=== PATIENT | male | born 1965 | race Caucasian/White ===

== ENCOUNTER 2017-11-19 11:32 | Emergency (ER) | payer OTHER, SELFPAY ==
[2017-11-19 11:45] VITALS: BP 122/85; PULSE 89; RESP 18; TEMP 37.1; O2SAT 96; BMI 27.5
--- NOTE | 2017-11-19 11:56 | XR_ITS ---
XR elbow RT min 3V HISTORY: Pain with limited range of motion ITS.REASON: lifting table, heard pop, pain and limited ROM ORDERING PHYSICIAN: Ramiro Thacker PATIENT AGE: 52 years COMPARISON: None FINDINGS: BONY STRUCTURES: No fracture or dislocation. No lytic or blastic change. Normal mineralization. SOFT TISSUES: Unremarkable. No radio opaque foreign bodies. No displaced fat pad. JOINT SPACE: Well-preserved. No significant arthritic changes evident. IMPRESSION: Negative elbow.
--- NOTE | 2017-11-19 11:56 | XR_ITS ---
XR shoulder RT min 2V HISTORY: Pain with limited range of motion ITS.REASON: lifting table 3/2, felt pop, pain limited ROM ORDERING PHYSICIAN: Ramiro Thacker PATIENT AGE: 52 years COMPARISON: None FINDINGS: No fracture or dislocation. No lytic or blastic change. There is normal mineralization. The joint spaces are well-preserved. No significant degenerative/arthritic changes. No erosive changes evident. IMPRESSION: Negative, no acute finding
--- NOTE | 2017-11-19 11:59 | HMH.EDUTC ---
[facility] [place] Clinical Impression: Strain of right upper arm Qualifiers: Encounter type: initial encounter Qualified Code(s): S46.911A - Strain of unspecified muscle, fascia and tendon at shoulder and upper arm level, right arm, initial encounter Right shoulder strain Qualifiers: Encounter type: initial encounter Qualified Code(s): S46.911A - Strain of unspecified muscle, fascia and tendon at shoulder and upper arm level, right arm, initial encounter Disposition: Home, Self-Care Condition on Discharge: Good Instructions: DI for Shoulder Sprain, How To Perform RICE (Rest, Ice, Compress, Elevate), How to Use a Sling Additional Instructions: * Concern for possible bicep tendon injury distally and/or shoulder strain involving your rotator cuff tendons. Follow up important unless within 2-3 days you are back to normal movement without pain or weakness. * Use/move as tolerated but if painful, stop. Do not work beyond pain but range of motion and follow up important to prevent frozen shoulder * Rest * ice 15-20 mins 3-4 times a day * sling for support and waist strap for shoulder immobilization. Be sure not too tight but not too loose either * Elevate as discussed as much as possible to help reduce swelling and therefore, pain *naproxen every 12 hours as needed for pain and inflammation. If you need something more, you can take tylenol every 4 hours as needed as long as your primary care provider has told you it is ok to take both. * No additional anti-inflammatories like motrin, aleve, advil with the above amount of naproxen. You CAN still take Tylenol every 4 hours as needed if you need something more for pain. Prescriptions: Naproxen 500 mg PO BID PRN #14 tab PRN Reason: Moderate Pain Referrals: Jayant Maddox MD [Staff Physician] - (Call Tuesday since you do not have a primary care provider. Report seen in [facility] for shoulder and elbow pain with limited range of motion and weakness. Xrays negative. Was told to follow up. ) Forms: Work/School Release Time of Disposition: 13:45 Medical Decision Making Vital Signs: 11/19/17 11:45 Temperature 98.7 F Temperature Source Temporal Artery Scan Pulse Rate [Left Radial] 89 Respiratory Rate 18 Blood Pressure [Right Arm] 122/85 Blood Pressure Mean [Right Arm] 97 02 Sat by Pulse Oximetry 96 Oxygen Delivery Method Room Air Orders (Tests/Meds): ED MEDICATIONS Discontinued Medications Generic Name Dose Route Start Last Admin Trade Name Maurice PRN Reason Stop Dose Admin Ketorolac Tromethamine 60 mg 11/19/17 11:55 11/19/17 12:05 Toradol 60mg/2ml Vial IM 11/19/17 11:56 60 mg ONCE ONE Administration - Radiology Data #1 Image(s): Shoulder, Elbow Image Reviewed: Yes I have reviewed radiologist's interpretation Preliminary Findings: Normal/NAD - Osman Inquiry Pt receiving controlled substance: No - Reevaluation(s) Time: 12:48 Reevaluation #1: After waiting 10 minutes in ER to have ER MD read xrays, still in with a patient. SUPERVISOR [employer] will have him call once he is available to read xrays. Went in to update pt. Pt initially resting recline back on exam table with bilateral arms down at his sides. The minute I opened the door, he immediately place right FA back across abdomen. Appears to have been sleeping or resting with eyes closed. Reports toradol helping and pain much less . Updated on delay. No needs at this time. 1340: Radiologist read xrays as ER MD still unavailable. Went in to discuss with patient and . Pt found asleep/resting with eyes closed again as above. Both arms to side again with elbow extended. Immediately aroused, pulled right fingers to mouth and bit a nail then placed FA back across abdomen. Tried to reexamine UE but again, reporting pain and reluctance to move. [facility] [place] - General Stated complaint: poss pull muscle in right arm Time Seen by Provider: 11/19/17 11:45 Mode of Arrival: Family Vehicle Source of Information: Patient Limitat
--- NOTE | 2017-11-19 12:15 | ED_ITS ---
[facility] [place]: Strain of right upper arm Qualifiers: Encounter type: initial encounter Qualified Code(s): S46.911A - Strain of unspecified muscle, fascia and tendon at shoulder and upper arm level, right arm , initial encounter Right shoulder strain Qualifiers: Encounter type: initial encounter Qualified Code(s): S46.911A - Strain of unspecified muscle, fascia and tendon at shoulder and upper arm level, right arm , initial encounter Disposition: Home, Self-Care Condition on Discharge: Good Instructions: DI for Shoulder Sprain, How To Perform RICE (Rest, Ice, Compress , Elevate), How to Use a Sling Additional Instructions: * Concern for possible bicep tendon injury distally and/or shoulder strain involving your rotator cuff tendons. Follow up important unless within 2-3 days you are back to normal movement without pain or weakness. * Use/move as tolerated but if painful, stop. Do not work beyond pain but range of motion and follow up important to prevent frozen shoulder * Rest * ice 15-20 mins 3-4 times a day * sling for support and waist strap for shoulder immobilization. Be sure not too tight but not too loose either * Elevate as discussed as much as possible to help reduce swelling and therefore , pain *naproxen every 12 hours as needed for pain and inflammation. If you need something more, you can take tylenol every 4 hours as needed as long as your primary care provider has told you it is ok to take both. * No additional anti-inflammatories like motrin, aleve, advil with the above amount of naproxen. You CAN still take Tylenol every 4 hours as needed if you need something more for pain. Prescriptions: Naproxen 500 mg PO BID PRN #14 tab PRN Reason: Moderate Pain Referrals: Jayant Maddox MD [Staff Physician] - (Call Tuesday since you do not have a primary care provider. Report seen in [facility] for shoulder and elbow pain with limited range of motion and weakness. Xrays negative. Was told to follow up. ) Forms: Work/School Release Time of Disposition: 13:45 Medical Decision Making Vital Signs: 11/19/17 11:45 Temperature 98.7 F Temperature Source Temporal Artery Scan Pulse Rate [Left Radial] 89 Respiratory Rate 18 Blood Pressure [Right Arm] 122/85 Blood Pressure Mean [Right Arm] 97 02 Sat by Pulse Oximetry 96 Oxygen Delivery Method Room Air Orders (Tests/Meds): ED MEDICATIONS Discontinued Medications Generic Name Dose Route Start Last Admin Trade Name Maurice PRN Reason Stop Dose Admin Ketorolac Tromethamine 60 mg 11/19/17 11:55 11/19/17 12:05 Toradol 60mg/2ml Vial IM 11/19/17 11:56 60 mg ONCE ONE Administration - Radiology Data #1 Image(s): Shoulder, Elbow Image Reviewed: Yes I have reviewed radiologist's interpretation Preliminary Findings: Normal/NAD - Osman Inquiry Pt receiving controlled substance: No - Reevaluation(s) Time: 12:48 Reevaluation #1: After waiting 10 minutes in ER to have ER MD read xrays, still in with a patient. [employer] will have him call once he is available to read xrays. Went in to update pt. Pt initially resting recline back on exam table with bilateral arms down at his sides. The minute I opened the door, he immediately place right FA back across abdomen. Appears to have been sleeping or resting with eyes closed. Reports toradol helping and pain much less . Updated on delay. No needs at this time. 1340: Radiologist read xrays as ER MD
[2017-11-19 13:42] VITALS: BP 120/79; PULSE 82; RESP 18; TEMP 37; O2SAT 98
== END 2017-11-19 13:52 | disposition home or self-care (01) ==
PROVIDERS: Emergency Provider Nurse Practitioner Family
DX: S46.911A Strain of unspecified muscle, fascia and tendon at shoulder and upper arm level, right arm, initial encounter (principal); X50.0XXA Overexertion from strenuous movement or load, initial encounter; F17.210 Nicotine dependence, cigarettes, uncomplicated
CPT/HCPCS: 73030; 73080; 96372; 99202

== ENCOUNTER 2020-08-19 16:56 | Emergency (ER) | payer MEDICAID, SELFPAY ==
[2020-08-19 17:25] VITALS: BP 137/93; PULSE 76; RESP 18; TEMP 36.3; O2SAT 96; BMI 28.0
[2020-08-19 17:38] VITALS: BP 137/93; PULSE 76; RESP 18; TEMP 36.3; O2SAT 96
--- NOTE | 2020-08-19 17:38 | HMH.EDUTC ---
[facility] [place]: Exposure to COVID-19 virus Disposition: Home, Self-Care Condition on Discharge: Good Instructions: Preventing the Spread of Coronavirus Discharge Instructions Additional Instructions: *Monitor Temp, Over the counter Motrin or Tylenol as directed/as needed Tylenol every 4 hours and Motrin every 6 hours (as long as your family doctor has told you that you can take it) for fever or pain. and straight to ER if unable to lower temp less than 101.0 after medication given *Warm salt water gargles may help to soothe the throat *Throat Lozenges *Warm fluids like tea with honey may help to soothe the throat *Sleep elevated *Humidifier/Vaporizer Follow up IMMEDIATELY for new or worsening symptoms or no Noticeable improvement over the next 48-72 hours. 911 for difficulty breathing or swallowing You was tested for today for COVID19 your test result should be back in the next 24-48 hours, you may call to the [facility] tomorrow to see if your test results are back however could take up to 48 hours before results are back [phone] [facility] hours are 9am-9pm You was given a handout with instructions for Self Quarantine and Self isolation for while you wait on test results and what to do if they are positive If you are positive the Health Dept will be contacting you also Referrals: PCP,No [Primary Care Provider] - Forms: Work/School Release Time of Disposition: 17:45 Medical Decision Making - Osman Inquiry Pt receiving controlled substance: No Osman was queried for this patient: No Vital Signs: 08/19/20 17:25 Temperature 97.4 F L Temperature Source Oral Pulse Rate [Right Brachial] 76 Respiratory Rate 18 Blood Pressure [Right Arm] 137/93 H Blood Pressure Mean [Right Arm] 107 Blood Pressure Source [Right Arm] Automatic Cuff Blood Pressure Position [Right Arm] Sitting 02 Sat by Pulse Oximetry 96 Oxygen Delivery Method Room Air Orders (Tests/Meds): ORDERS Category Date Time Status Covid-19 Nasal PCR Sendout [facility] 08/19/20 17:32 [place] [facility] [place] General Stated complaint: COVID TESTING Time Seen by Provider: 08/19/20 17:39 Mode of Arrival: Ambulatory Source of Information: Patient Limitations: No Limitations Description of Symptoms (Recalled from Triage Doc. by RN): PATIENT REQUESTING COVID TEST D/T EXPOSURE; DENIES SYMPTOMS HEENT Symptoms (Recalled from RN notes): No Resp Symptoms (Recalled from RN notes): No Skin Symptoms (Recalled from RN notes): No MS Symptoms (Recalled from RN notes): No Functional Status (Recalled from RN notes): WNL - History of Present Illness Provider Complaint: Patient states that he was recently close contact and was exposed to someone that tested positive for COVID State that he is not having any symptoms but wanted to get tested - Related Data Previous Rx's Medication Instructions Recorded Pantoprazole Sodium [Protonix 40mg 40 mg PO HS 30 Days #30 tab 09/28/19 tablet] Allergies Allergy/AdvReac Type Severity Reaction Status Date / Time Penicillins [PENICILLINS] Allergy Intermediate Verified 09/28/19 05:34 - Worker's Comp Is this a Worker's Comp case?: No [facility] History - Hepatitis A Screen Drug use history?: No High risk sexual behaviors?: No History of sexually transmitted infection?: No Currently employed?: No Childcare worker?: No Do you have indoor plumbing?: Yes Do you have electricity?: Yes Attestation statement:: This patient has been screened for Hepatitis A risk factors. I have reviewed the patient's past medical history: Yes Medical History: Denies:: Cancer, Diabetes Mellitus Type 1, Diabetes Mellitus Type 2, Hypertension, MRSA Other Surgeries: Yes: Other Amputation: No Fractures: Yes - Social History Smoking Status: Current every day smoker Tobacco Type: cigarettes # Packs/Day (cigarettes): 1 Alcohol Intake: never Alcohol Intake Frequency:: holidays/special occasions only Occupa
[2020-08-21 09:44] LABS: Covid-19 Nasal PCR Sendout Lex NOT DETECTED
== END 2020-08-19 17:40 | disposition home or self-care (01) ==
PROVIDERS: Emergency Provider Nurse Practitioner
DX: Z20.828 Contact with and (suspected) exposure to other viral communicable diseases (principal); Z88.0 Allergy status to penicillin
CPT/HCPCS: 99201; U0004

== ENCOUNTER 2021-02-07 03:14 | Emergency (ER) | payer OTHER, SELFPAY ==
[2021-02-07 03:15] VITALS: BP 125/88; PULSE 88; RESP 16; TEMP 36.8; O2SAT 97; BMI 29.7
--- NOTE | 2021-02-07 03:22 | HMH.EDMCLR ---
ED Disposition Clinical Impression: Medical clearance for incarceration Disposition: Home, Self-Care Condition on Discharge: Good Referrals: Jelena Segovia APRN [Primary Care Provider] - Time of Disposition: 03:24 - Critical Care Critical Care Time: No Attestation: On 02/07/21, the high probability of a clinically significant, sudden or life threatening deterioration of the following system(s) required my full and direct attention, intervention and personal management. The time I documented below is in addition to time spent performing reported procedures but includes the following listed in this critical care notation. Medical Decision Making - Medical Records Medical records reviewed: Yes: I reviewed the patient's medical records. - Osman Inquiry Pt receiving controlled substance: No Vital Signs: 02/07/21 03:15 Temperature 98.3 F Temperature Source Oral Pulse Rate [Left Radial] 88 Respiratory Rate 16 Blood Pressure [Right Arm] 125/88 Blood Pressure Mean [Right Arm] 100 Blood Pressure Source [Right Arm] Automatic Cuff Blood Pressure Position [Right Arm] Sitting 02 Sat by Pulse Oximetry 97 Oxygen Delivery Method Room Air Medical Decision Narrative: 55-year-old male presents for clearance for snf. He is alert and oriented and not significantly intoxicated clinically. Denies other drug use today vital signs are within normal limits and he is well-appearing. He will be cleared for snf and discharged in the custody of police. Medical Clearance HPI - General Chief complaint: Medical Clearance Stated complaint: Medical Clearance Time Seen by Provider: 02/07/21 03:22 Mode of Arrival: Ambulatory Source of Information: Patient, Law Enforcement Limitations: No Limitations Description of Symptoms (Recalled from ER Triage Doc. by RN): Pt here for medical clearance with PD. Pt has no complaints. A&Ox4. Pt denies drug use. Pt states he has been drinking tonight. - History of Present Illness HPI Narrative: 55-year-old male who presents in law enforcement custody for medical clearance. Patient reportedly has drank alcohol tonight. He is alert and oriented and able to provide history stating that he has no pain or complaints at this time. Denies other drug use and recent illness. Home medications: Home Medications Medication Instructions Recorded Confirmed No Known Home Medications 12/19/20 12/19/20 Allergies/Adverse reactions: Allergies Allergy/AdvReac Type Severity Reaction Status Date / Time Penicillins [PENICILLINS] Allergy Intermediate Verified 12/19/20 12:02 [facility] [place] History - Hepatitis A Screen Drug use history?: No High risk sexual behaviors?: No History of sexually transmitted infection?: No Currently employed?: No Childcare worker?: No Do you have indoor plumbing?: Yes Do you have electricity?: Yes Attestation statement:: This patient has been screened for Hepatitis A risk factors. Medical History: Reports:: Heart Murmur Denies:: Cancer, Diabetes Mellitus Type 1, Diabetes Mellitus Type 2, Hypertension, MRSA Other Surgeries: Yes: Other Amputation: No Fractures: Yes - Social History Smoking Status: Current every day smoker Tobacco Type: cigarettes # Packs/Day (cigarettes): 1 Alcohol Intake: never Alcohol Intake Frequency:: holidays/special occasions only Occupational Status: employed Family Hx:: No significant family history, Non-contributory ROS Obtained: Yes Systems reviewed as appropriate & no additional complaints Physical Exam - General General appearance: alert, in no apparent distress - Head Head exam: atraumatic, normocephalic - Eye Eye exam: Present: PERRL, EOMI - ENT ENT exam: Present: mucous membranes moist - Neck Neck exam: Present: trachea midline - Chest Chest inspection: Present: symmetric chest wall rise - Respiratory Respiratory exam: Absent: respiratory distress - Cardiovascular Cardiovascular exam: Present: regular r
[2021-02-07 03:24] VITALS: BP 125/88; PULSE 88; RESP 16; TEMP 36.8; O2SAT 97
== END 2021-02-07 03:25 | disposition home or self-care (01) ==
PROVIDERS: Emergency Provider Student in an Organized Health Care Education/Training Program; PCP Nurse Practitioner Family
DX: F10.10 Alcohol abuse, uncomplicated (principal); F17.210 Nicotine dependence, cigarettes, uncomplicated
CPT/HCPCS: 99282

== ENCOUNTER 2021-12-24 15:18 | Emergency (ER) | payer SELFPAY ==
[2021-12-24 15:25] VITALS: BP 134/86; PULSE 78; RESP 19; TEMP 36.6; O2SAT 97; BMI 28.1
--- NOTE | 2021-12-24 15:41 | HMH.EDUTC ---
[facility] [place] Clinical Impression: URI (upper respiratory infection) Qualifiers: URI type: unspecified URI Qualified Code(s): J06.9 - Acute upper respiratory infection, unspecified Disposition: Home, Self-Care Condition on Discharge: Good Instructions: DI for Cough -- Adult, Sore Throat, Sinusitis Additional Instructions: *Monitor Temp, Over the counter Motrin or Tylenol as directed/as needed Tylenol every 4 hours and Motrin every 6 hours (as long as your family doctor has told you that you can take it) for fever or pain. and straight to ER if unable to lower temp less than 101.0 after medication given *Warm salt water gargles may help to soothe the throat *Throat Lozenges *Warm fluids like tea with honey may help to soothe the throat *Sleep elevated *Humidifier/Vaporizer Take medication as prescribed Return if needed Follow up IMMEDIATELY for new or worsening symptoms or no Noticeable improvement over the next 48-72 hours. 911 for difficulty breathing or swallowing Prescriptions: Benzonatate [Benzonatate 100mg cap] 100 mg PO Q8HP PRN #15 cap PRN Reason: Cough Transmission Status[id number] methylPREDNISolone [Medrol 4mg tab] 4 mg PO DIRECTED #21 tab Transmission Status: P[facility] to [facility] Azithromycin [Z-Luke 250mg Tab] 250 mg PO DIRECTED #6 tab Transmission Status: Pending to [id number] Referrals: Provider,Referral, MD [Primary Care Provider] - As needed Forms: Work/School Release Time of Disposition: 15:48 Medical Decision Making - Osman Inquiry Pt receiving controlled substance: No Osman was queried for this patient: No Vital Signs: 12/24/21 15:25 Temperature 97.9 F Temperature Source Oral Pulse Rate [Right Brachial] 78 Respiratory Rate 19 Blood Pressure [Right Arm] 134/86 Blood Pressure Mean [Right Arm] 102 Blood Pressure Source [Right Arm] Automatic Cuff Blood Pressure Position [Right Arm] Sitting 02 Sat by Pulse Oximetry 97 Oxygen Delivery Method Room Air - Lab Data Lab results reviewed: Yes: I reviewed the patient's lab results. [facility] [place]PI - General Stated complaint: ear ache headache Time Seen by Provider: 12/24/21 15:41 Mode of Arrival: Ambulatory Source of Information: Patient Limitations: No Limitations Description of Symptoms (Recalled from Triage Doc. by RN): PATIENT C/O FEVER, LEFT EAR PAIN, BODY ACHES, AND PRODUCTIVE COUGH SINCE YESTERDAY HEENT Symptoms (Recalled from RN notes): Yes Resp Symptoms (Recalled from RN notes): Yes Skin Symptoms (Recalled from RN notes): No MS Symptoms (Recalled from RN notes): No Functional Status (Recalled from RN notes): WNL - History of Present Illness Provider Complaint: Patient states he has been having fever, chills, body aches, left ear pain and cough since yesterday with drianage in the back of his throat and at times he is coughing up some mucous State that he is having pressure behind his eyes and in his sinuses States that today he was still feeling bad so he came in to get checked - Related Data Previous Rx's Medication Instructions Recorded Azithromycin [Z-Luke 250mg Tab] 250 mg PO DIRECTED #6 tab 12/24/21 Benzonatate [Benzonatate 100mg 100 mg PO Q8HP PRN #15 cap 12/24/21 cap] methylPREDNISolone [Medrol 4mg 4 mg PO DIRECTED #21 tab 12/24/21 tab] Allergies Allergy/AdvReac Type Severity Reaction Status Date / Time Penicillins [PENICILLINS] Allergy Intermediate Verified 12/19/20 12:02 - Worker's Comp Is this a Worker's Comp case?: No [facility] History - Hepatitis A Screen Drug use history?: No High risk sexual behaviors?: No History of sexually transmitted infection?: No Currently employed?: No Childcare worker?: No Do you have indoor plumbing?: Yes Do you have electricity?: Yes Attestation statement:: This patient has been screened for Hepatitis A risk factors. I have reviewed the patient's past medical history: Yes Med
[2021-12-24 15:45] LABS: UTC Influenza A Antigen Negative (Negative)
[2021-12-24 15:46] LABS: UTC Influenza B Antigen Negative (Negative)
[2021-12-24 15:47] VITALS: BP 134/86; PULSE 78; RESP 19; TEMP 36.6; O2SAT 97
== END 2021-12-24 15:52 | disposition home or self-care (01) ==
PROVIDERS: Emergency Provider Nurse Practitioner
DX: J06.9 Acute upper respiratory infection, unspecified (principal); F17.210 Nicotine dependence, cigarettes, uncomplicated
CPT/HCPCS: 87804; 99212; G0463

== ENCOUNTER 2024-02-01 10:04 | Outpatient (CLI) | payer MEDICAID, SELFPAY ==
[2024-02-01 18:29] LABS: Basophils # 0.1 K/mm3 (0-0.2); Basophils % 0.8 % (0.1-2.0); Eosinophils # 0.2 K/mm3 (0.0-0.4); Eosinophils % 3.3 % (0.1-12.0); Hematocrit 47.1 % (42.0-52.0); Hemoglobin 16.1 g/dL (14.1-18.0); Lymphocytes # 1.6 K/mm3 (0.7-4.5); Mean Corpuscular HGB Conc 34.2 g/dL (31.8-35.4); Mean Corpuscular Hemoglobin 32.7 pg (27.0-31.2); Mean Corpuscular Volume 95.6 fl (80-94); Mean Platelet Volume 10.4 fl (7.4-10.4); Monocytes # 0.5 K/mm3 (0.1-1.0); Monocytes % 6.8 % (1.7-9.3); Neutrophils # 4.2 K/mm3 (1.8-7.8); Neutrophils % 64.2 % (37.0-80.0); Platelet Count 233 K/mm3 (142-424); Red Blood Count 4.93 M/mm3 (4.60-6.20); Red Cell Distribution Width 13.3 % (11.5-17.5); White Blood Count 6.6 K/mm3 (4.8-10.8)
[2024-02-01 20:05] LABS: Alanine Aminotransferase 49 U/L (12-78); Albumin Level 4.2 g/dl (3.5-5.0); Albumin/Globulin Ratio 1.4 (1.1-1.8); Alkaline Phosphatase 87 U/L (38-126); Anion Gap 15.7 mEq/L (5-15); Aspartate Amino Transferase 37 U/L (17-59); Bilirubin,Total 1.2 mg/dl (0.2-1.3); Blood Urea Nitrogen 19 mg/dl (9-20); Calcium 9.6 mg/dl (8.4-10.2); Carbon Dioxide 26 mmol/L (22.0-30.0); Chloride 104 mmol/L (98-107); Estimated Glomerular Filt Rate 87 ml/min (>60); GFR (African American) 106 ML/MIN (>60); Globulin 3.1 g/dL (1.3-3.2); Glucose 100 mg/dl (74-100); Potassium 4.7 mmoL/L (3.5-5.1); Sodium 141 mmol/L (136-145); Total Protein,Serum 7.3 g/dl (6.3-8.2)
[2024-02-01 20:33] LABS: Prostate Specific Ag Screen 0.8 ng/ml (0.0-4.0)
[2024-02-06 23:23] LABS: HBsAg Screen Negative (Negative); HCV Ab Reactive (Non Reactive); Hep A Ab, IGM Negative (Negative); Hep B Core Ab, IgM Negative (Negative)
== END 2024-02-01 23:59 | disposition home or self-care (01) ==
LOC: LAB.DROPOF 02-03 10:05
PROVIDERS: PCP Family Medicine; Visit Provider Family Medicine
DX: K85.90 Acute pancreatitis without necrosis or infection, unspecified (principal); R10.12 Left upper quadrant pain
CPT/HCPCS: 80053; 80074; 85025; G0103

== ENCOUNTER 2024-02-27 16:02 | Outpatient (CLI) | payer OTHER, SELFPAY ==
[2024-02-27 16:27] LABS: INR 0.93 (0.9-1.1); Prothrombin Time 10.1 seconds (10.1-12.5)
[2024-03-01 21:32] LABS: Hepatitis C Genotype 1a (.)
== END 2024-02-27 23:59 | disposition home or self-care (01) ==
LOC: LAB.DROPOF 16:02
PROVIDERS: PCP Nurse Practitioner Family; Visit Provider Nurse Practitioner Family
DX: B19.20 Unspecified viral hepatitis C without hepatic coma (principal)
CPT/HCPCS: 85610; 87902

== ENCOUNTER 2024-03-07 08:52 | Emergency (ER) | payer OTHER, SELFPAY ==
[2024-03-07 08:53] VITALS: BP 131/89; PULSE 84; RESP 18; TEMP 36.6; O2SAT 95; BMI 29.2
--- NOTE | 2024-03-07 09:06 | CT_ITS ---
FINAL REPORT TECHNIQUE: After the administration of intravenous contrast, axial images were obtained through the abdomen and pelvis by computed tomography. The study was performed with techniques to keep radiation dose as low as reasonably achievable, (ALARA). Individual dose reduction techniques using automated exposure control or adjustment of mA and/or kV according to the patient's size were employed. CLINICAL HISTORY: L abdominal pain, blood in stool COMPARISON: None FINDINGS: Abdomen: There is moderate right basilar atelectasis. Subcentimeter hypodense lesion in the liver dome is probably a cyst. The remaining solid abdominal organs are unremarkable. No bowel obstruction is present. There is mild wall thickening of the descending colon compatible with nonspecific colitis. The transverse and right colon are unremarkable. There is no free air. No fluid collection is seen. There is no adenopathy. Pelvis: The appendix is normal. There is wall thickening of the descending colon extending to involve the proximal sigmoid colon. Small bilateral inguinal hernias are noted. The left contains a small portion of bladder. There is no free fluid. No pelvic mass is seen. IMPRESSION: Nonspecific long segment wall thickening of the left colon and sigmoid colon compatible with mild colitis. Reviewed, Interpreted and Dictated by Barak Browne MD Transcribed by Mandy Ash Authenticated and [facility]
[2024-03-07 09:17] LABS: Basophils # 0.1 K/mm3 (0-0.2); Basophils % 0.7 % (0.1-2.0); Eosinophils # 0.3 K/mm3 (0.0-0.4); Eosinophils % 2.7 % (0.1-12.0); Hematocrit 45.4 % (42.0-52.0); Hemoglobin 15.7 g/dL (14.1-18.0); Lymphocytes # 1.8 K/mm3 (0.7-4.5); Mean Corpuscular HGB Conc 34.7 g/dL (31.8-35.4); Mean Corpuscular Hemoglobin 32.7 pg (27.0-31.2); Mean Corpuscular Volume 94.2 fl (80-94); Mean Platelet Volume 9.1 fl (7.4-10.4); Monocytes # 0.6 K/mm3 (0.1-1.0); Monocytes % 5.9 % (1.7-9.3); Neutrophils # 7.3 K/mm3 (1.8-7.8); Neutrophils % 72.6 % (37.0-80.0); Platelet Count 259 K/mm3 (142-424); Red Blood Count 4.82 M/mm3 (4.60-6.20); Red Cell Distribution Width 13.5 % (11.5-17.5); White Blood Count 10.1 K/mm3 (4.8-10.8)
--- NOTE | 2024-03-07 09:18 | ED_ITS ---
Discharge Plan Disposition Patient Disposition: Home, Self-Care Prescriptions Prescriptions: New oxycodone 5 mg tablet 5 mg PO TID PRN (Reason: severe abdominal pain) Qty: 9 0RF ondansetron 4 mg tablet,disintegrating 4 mg PO Q8H PRN (Reason: nausea and vomiting) 4 Days Qty: 12 0RF No Action sildenafil [Viagra] 100 mg tablet 100 mg PO DAILY PRN (Reason: sexual activity) Qty: 10 10RF Rx Instructions: administer 30 minutes to 4 hours before activity polyethylene glycol 3350 [Miralax] 17 gram/dose powder 17 g PO BID Qty: 238 10RF sofosbuvir-velpatasvir [Epclusa] 400-100 mg tablet 1 tab PO DAILY 84 Days Qty: 84 0RF Referrals Follow up/Referrals: Sav Chandra MD [Primary Care Provider] - See instructions Activity Restrictions/Add. Instructions Additional Instructions/Restrictions: At this time it was felt you are safe to be discharged home. If new or worsening symptoms please do not hesitate to return the emergency department. For pain please take Tylenol 1000 mg every 6 hours as needed and for severe pain take your oxycodone as prescribed. Do not take ibuprofen as it can thin the lining of your intestines. Please follow-up with Dr. Chandra later this week to repeat your blood work and have a repeat physical exam. Clinical Impressions Clinical Impression: Colitis, GI bleed Instructions Patient Instructions: DI for Acute Abdominal Pain Discharge ED Provider: Terry Mckenna General Adult HPI General Chief complaint: Abdominal Pain Stated complaint: pain in left side, blood in feces Time Seen by Provider: 03/07/24 09:00 Mode of Arrival: Ambulatory Source of Information: Patient Limitations: No Limitations Description of Symptoms (Recalled from ER Triage Doc. by RN): left sided abdominal pain. Now has blood in stool. history of hemorrhoids History of Present Illness HPI narrative: Patient is a 58-year-old male with past medical history of previous IV drug use, last use 14 months ago, hepatitis C on antiviral therapy who presents emergency department for evaluation of chronic abdominal pain. Patient was incarcerated for approximately 2 years, was recently released. He has had 2 months of left- sided abdominal pain with difficulty stooling. His stools are soft however he has to strain significantly to get stool out. He says he has a past medical history of hemorrhoids. He was being referred for a colonoscopy and unfortunately they are unable to get him in until May. What is most concerning him is that this morning he had a large bowel movement that was mostly bright red blood. No chest pain, no dysuria, no other acute complaints at this time. Related Data Previous Rx's Medication Instructions Recorded polyethylene glycol 3350 17 17 g PO BID #238 grams 02/01/24 gram/dose oral powder (Miralax) sildenafil 100 mg tablet (Viagra) 100 mg PO DAILY PRN sexual 02/01/24 activity #10 tabs sofosbuvir 400 mg-velpatasvir 100 1 tab PO DAILY 12 weeks #84 tabs 02/27/24 mg tablet (Epclusa) ondansetron 4 mg disintegrating 4 mg PO Q8H PRN nausea and 03/07/24 tablet vomiting 4 days #12 tabs oxycodone 5 mg tablet 5 mg PO TID PRN severe abdominal 03/07/24 pain #9 tabs Allergies Allergy/AdvReac Type Severity Reaction Status Date / Time Penicillins [PENICILLINS] Allergy Intermediate Verified 02/27/24 14:02 [facility] Disclaimer: The information contained in this section may have been updated after the patient was seen, as this information can be updated by other users. Medical History (Updated 03/07/24 @ 11:52 by Terry Mckenna MD) Strain of right upper arm Right shoulder strain Skin infection Medical clearance for incarceration URI (upper respiratory infection) Pancreatitis Surgical History History of mandibular surgery History of surgery on left wrist Family History Other Cancer Coronary artery disease Diabetes Hypertension Social History Smoking Status: Current every day smoker tobacco type: e-cigarettes alcohol intake: never current occupational status: unemployed Travel in the last 8 weeks: None ROS Obtained: Yes Systems reviewed as appropriate & no additional complaints except as documented Physical Exam General General appearance: alert and in no apparent distress Head Head exam: atraumatic and normocephalic Eye Eye exam: Present PERRL ENT ENT exam: Present mucous membranes moist Neck Neck exam: Present normal inspection Chest Chest inspection: Present normal inspection and symmetric chest wall rise Respiratory Respiratory exam: Present normal lung sounds bilaterally; Absent respiratory distress Cardiovascular Cardiovascular exam: Present regular rate and normal rhythm Abdominal Exam Abdominal exam: Present soft and tenderness (Left lower quadrant.) exam: Present other (Editor House Organ present, nonthrombosed nonbleeding external hemorrhoid. No anal fissures.) Extremities Exam Extremities exam: Present normal inspection Neurological Exam Neurological exam: Present alert and oriented X3 Psychiatric Psychiatric exam: Present normal affect Skin Skin exam: Present warm and dry Medical Decision Making [place] Inquiry Pt receiving controlled substance: No Vital Signs: 03/07/24 08:53 03/07/24 10:15 03/07/24 11:00 Temperature 98 F Temperature Source Oral Pulse Rate 66 68 Pulse Rate [Right] 84 Respiratory Rate 18 Blood Pressure 115/78 114/77 Blood Pressure [Right Arm] 131/89 Blood Pressure Mean [Right Arm] 103 02 Sat by Pulse Oximetry 95 95 94 L Oxygen Delivery Method Room Air Room Air Room Air 03/07/24 11:30 Temperature Temperature Source Pulse Rate 65 Pulse Rate [Right] Respiratory Rate Blood Pressure 107/73 L Blood Pressure [Right Arm] Blood Pressure Mean [Right Arm] 02 Sat by Pulse Oximetry 94 L Oxygen Delivery Method Room Air Lab Data Lab Results 03/07/24 09:05: WBC 10.1, RBC 4.82, Hgb 15.7, Hct 45.4, MCV 94.2 H, MCH 32.7 H, MCHC 34.7, RDW 13.5, Plt Count 259, MPV 9.1, Neut % (Auto) 72.6, Lymph % (Auto) 18.0, [place] % (Auto) 5.9, Eos % (Auto) 2.7, Baso % (Auto) 0.7, Neut # (Auto) 7.3, Lymph # (Auto) 1.8, [place] # (Auto) 0.6, Eos # (Auto) 0.3, Baso # (Auto) 0.1, PT 9.6 L, INR 0.88 L, Sodium 137, Potassium 5.3 H, Chloride 107, Carbon Dioxide 24, Anion Gap 11.3, BUN 24 H, Creatinine 0.90, Estimated Creat Clear 141, Estimated GFR 87, Est GFR ( Amer) 106, Glucose 114 H, Calcium 9.1, Total Bilirubin 1.7 H, AST 46, ALT 47, Alkaline Phosphatase 65, Total Protein 7.5, Albumin 4.2, Globulin 3.3 H, Albumin/Globulin Ratio 1.3, Lipase 162 03/07/24 10:30: Urine Color Yellow, Urine Appearance Clear, Urine pH 5.5, Ur Specific [place] 1.020, Urine Protein Negative, Urine Glucose (UA) Negative, Urine Ketones Negative, Urine Blood Negative, Urine Nitrate Negative, Urine Bilirubin Negative, Urine Urobilinogen 1.0, Ur Leukocyte Esterase Negative 03/07/24 09:05 03/07/24 09:05 Orders (Tests/Meds): ED MEDICATIONS Discontinued Medications Generic Name Dose Route Start Last Admin Trade Name Freq PRN Reason Stop Dose Admin Acetaminophen 1,000 mg 03/07/24 09:06 03/07/24 09:21 Acetaminophen 1,000mg/100ml Vial IV 03/07/24 09:07 1,000 mg ONCE ONE Administration Lactated Ringer's 1,000 mls @ 999 mls/hr 03/07/24 09:06 03/07/24 09:21 Lactated Ringer's 1000 Ml Bag IV 03/07/24 10:06 999 mls/hr .Q1H1M ONE Administration Iopamidol 75 ml 03/07/24 09:48 03/07/24 09:49 Iopamidol-370 (76%);100ml Bottle IV 03/07/24 09:49 75 ml ONCE ONE Administration Morphine Sulfate 4 mg 03/07/24 09:06 03/07/24 09:21 Morphine 4mg/Ml Syringe IV 03/07/24 09:07 4 mg ONCE ONE Administration Ondansetron HCl 4 mg 03/07/24 09:06 03/07/24 09:21 Ondansetron 4mg/2ml Vial IV 03/07/24 09:07 4 mg ONCE ONE Administration Sodium Chloride 10 ml 03/07/24 09:48 03/07/24 09:48 Sodium Chloride 0.9% 10ml Syr (Rad Only) IV 03/07/24 09:49 10 ml ONCE ONE Administration ORDERS Category Date Time Status CT abdomen pelvis w con Stat Cat Scan 03/07/24 09:06 Completed CBC w/Auto Diff [Complete Blood Count Auto Diff] Stat Lab 03/07/24 09:05 Completed CMP [Comprehensive Metabolic Panel] Stat Lab 03/07/24 09:05 Completed Lipase Stat Lab 03/07/24 09:05 Completed PT INR [Prothrombin Time INR] Stat Lab 03/07/24 09:05 Completed UA [Urinalysis and Microscopic] Stat Lab 03/07/24 10:30 Results Medical Decision Narrative: In summary patient is a 58-year-old male with past medical history described above who presents emergency department for abdominal pain and bloody stool. Patient is hemodynamically stable nontoxic-appearing upon arrival, afebrile. Differential diagnosis includes mass, diverticulosis, diverticulitis, among others. Internal hemorrhoid should not be painful therefore that makes this diagnosis less likely. Initial workup will be conducted with hematologic labs, CT abdomen pelvis IV contrast, urinalysis. Initial inventions include Tylenol, morphine, Zofran, crystalloid bolus. Initial workup reviewed by me, hematologic labs are nonactionable, hemoglobin 15.7, mild hyperkalemia which does not need any intervention at this time. Urinalysis interpreted by me and not consistent with infection. CT imaging of abdomen pelvis shows nonspecific long segment wall thickening of the left colon and sigmoid colon compatible with colitis. This is where patient's pain is and makes sense. The colitis is of undetermined etiology. Multiple hours in the emergency department patient remained hemodynamically stable, no tachycardia, no ongoing large bloody bowel movements. I discussed the case with Dr. Monsalve, if patient warranted admission for pain control standpoint that would be 1 thing however it is likely to be of low yield for emergent colonoscopy without appropriate prep and given that patient is hemodynamically stable and labs are reassuring patient is appropriate for outpatient management at this time he will be referred to surgery's office for continued evaluation and was given multiple return precautions and verbalized understanding. Critical Care Critical Care Time Critical Care Time: No
[2024-03-07] MEDS: LACTATED RINGERS 1000ML 1,000 ML 999 ML IV (09:21)
[2024-03-07] MEDS: ONDANSETRON 4MG/2ML VIAL 4 MG IV (09:21)
[2024-03-07] MEDS: ACETAMINOPHEN 1,000MG/100ML VIAL 1000 MG IV (09:21)
[2024-03-07] MEDS: MORPHINE 4MG/ML SYRINGE 4 MG IV (09:21)
[2024-03-07 09:24] LABS: Chloride 107 mmol/L (98-107); Potassium 5.3 mmoL/L (3.5-5.1); Sodium 137 mmol/L (136-145)
[2024-03-07 09:27] LABS: Alanine Aminotransferase 47 U/L (12-78); Albumin Level 4.2 g/dl (3.5-5.0); Albumin/Globulin Ratio 1.3 (1.1-1.8); Alkaline Phosphatase 65 U/L (38-126); Anion Gap 11.3 mEq/L (5-15); Aspartate Amino Transferase 46 U/L (17-59); Bilirubin,Total 1.7 mg/dl (0.2-1.3); Blood Urea Nitrogen 24 mg/dl (9-20); Calcium 9.1 mg/dl (8.4-10.2); Carbon Dioxide 24 mmol/L (22.0-30.0); Creatinine Clearance Estimated 141 mL/min (50-200); Estimated Glomerular Filt Rate 87 ml/min (>60); GFR (African American) 106 ML/MIN (>60); Globulin 3.3 g/dL (1.3-3.2); Glucose 114 mg/dl (74-100); Lipase 162 U/L (23-300); Total Protein,Serum 7.5 g/dl (6.3-8.2)
[2024-03-07 09:35] LABS: INR 0.88 (0.9-1.1); Prothrombin Time 9.6 seconds (10.1-12.5)
--- NOTE | 2024-03-07 09:37 | PC.NURSE ---
Chaperoned MD for a rectal exam
--- NOTE | 2024-03-07 09:39 | PC.NURSE ---
PT in CT
[2024-03-07] MEDS: SODIUM CHLORIDE 0.9% 10ML SYR (RAD ONLY) 10 ML IV (09:48)
[2024-03-07] MEDS: IOPAMIDOL-370 (76%);100ML BOTTLE 75 ML IV (09:49)
[2024-03-07 10:15] VITALS: BP 115/78; PULSE 66; O2SAT 95
[2024-03-07 10:39] LABS: Microscopic, Urine URINE MICROSCOPIC (MICROSCOPIC)
[2024-03-07 10:55] LABS: Appearance,Urine CLEAR (Clear); Bilirubin,Urine Negative (Negative); Blood, Urine Negative (Negative); Color,Urine YELLOW (Yellow); Glucose,Urine (UA) Negative (Negative); Ketones,Urine Negative (Negative); Leukocyte Esterase,Urine Negative (Negative); Nitrate,Urine Negative (Negative); PH,Urine 5.5 (5.0-8.5); Protein,Urine Negative (Negative)
[2024-03-07 11:00] VITALS: BP 114/77; PULSE 68; O2SAT 94
[2024-03-07 11:30] VITALS: BP 107/73; PULSE 65; O2SAT 94
--- NOTE | 2024-03-07 12:00 | PC.NURSE ---
CAlled BJ in surgery to make an appt, message left for a call back
[2024-03-07 12:04] LABS: Bacteria,Urine Trace /lpf; Mucus,Urine 1+ /lpf; RBC,Urine Occasional #/hpf (0-3); WBC,Urine Occasional #/hpf (0-3)
[2024-03-07 12:05] LABS: Squamous Epithelial Cell,Urine Occasional #/hpf (0-5)
[2024-03-07 12:13] VITALS: BP 117/79; PULSE 64; RESP 18; TEMP 36.6; O2SAT 94
--- NOTE | 2024-03-07 13:08 | PC.NURSE ---
attempted to call pt about appt for Tuesday with at 0320
--- NOTE | 2024-03-07 13:15 | PC.NURSE ---
Pt aware of appt with
== END 2024-03-07 12:11 | disposition home or self-care (01) ==
PROVIDERS: Emergency Provider Emergency Medicine; PCP Family Medicine
DX: K92.2 Gastrointestinal hemorrhage, unspecified (principal); R10.32 Left lower quadrant pain; E87.5 Hyperkalemia; F17.290 Nicotine dependence, other tobacco product, uncomplicated
CPT/HCPCS: 74177; 80053; 81001; 83690; 85025; 85610; 96361; 96374; 96375; 99285; J0131; J2270; J2405; J7120; Q9967

== ENCOUNTER 2024-03-14 14:01 | Outpatient (CLI) | payer OTHER, SELFPAY ==
[2024-03-14 14:21] LABS: Basophils # 0.1 K/mm3 (0-0.2); Basophils % 0.9 % (0.1-2.0); Eosinophils # 0.2 K/mm3 (0.0-0.4); Eosinophils % 3.2 % (0.1-12.0); Hematocrit 44.8 % (42.0-52.0); Hemoglobin 15.6 g/dL (14.1-18.0); Lymphocytes # 1.9 K/mm3 (0.7-4.5); Lymphocytes % 26.2 % (10-50); Mean Corpuscular HGB Conc 34.9 g/dL (31.8-35.4); Mean Corpuscular Hemoglobin 32.6 pg (27.0-31.2); Mean Corpuscular Volume 93.5 fl (80-94); Mean Platelet Volume 9.1 fl (7.4-10.4); Monocytes # 0.4 K/mm3 (0.1-1.0); Monocytes % 5.1 % (1.7-9.3); Neutrophils # 4.8 K/mm3 (1.8-7.8); Neutrophils % 64.6 % (37.0-80.0); Platelet Count 263 K/mm3 (142-424); Red Cell Distribution Width 13.2 % (11.5-17.5); White Blood Count 7.4 K/mm3 (4.8-10.8)
[2024-03-14 14:46] LABS: Chloride 108 mmol/L (98-107)
[2024-03-14 14:47] LABS: Sodium 139 mmol/L (136-145)
[2024-03-14 14:50] LABS: Alanine Aminotransferase 23 U/L (12-78); Albumin Level 4.3 g/dl (3.5-5.0); Albumin/Globulin Ratio 1.4 (1.1-1.8); Alkaline Phosphatase 73 U/L (38-126); Aspartate Amino Transferase 22 U/L (17-59); Bilirubin,Total 1.2 mg/dl (0.2-1.3); Blood Urea Nitrogen 22 mg/dl (9-20); Calcium 9.5 mg/dl (8.4-10.2); Carbon Dioxide 24 mmol/L (22.0-30.0); Estimated Glomerular Filt Rate 69 ml/min (>60); GFR (African American) 84 ML/MIN (>60); Glucose 91 mg/dl (74-100); Total Protein,Serum 7.3 g/dl (6.3-8.2)
== END 2024-03-14 23:59 | disposition home or self-care (01) ==
LOC: LAB 14:02
PROVIDERS: PCP Family Medicine; Visit Provider Surgery
DX: K52.9 Noninfective gastroenteritis and colitis, unspecified (principal); R19.4 Change in bowel habit
CPT/HCPCS: 36415; 80053; 85025

== ENCOUNTER 2025-01-04 10:23 | Emergency (ER) | payer OTHER, SELFPAY ==
[2025-01-04 10:36] VITALS: BP 115/79; PULSE 88; RESP 18; TEMP 36.8; O2SAT 97; BMI 28.7
--- NOTE | 2025-01-04 11:02 | CT_ITS ---
FINAL REPORT TECHNIQUE: After the administration of oral and intravenous contrast, axial images were obtained through the abdomen and pelvis by computed tomography. The study was performed with techniques to keep radiation dose as low as reasonably achievable, (ALARA). Individual dose reduction techniques using automated exposure control or adjustment of mA and/or kV according to the patient's size were employed. CLINICAL HISTORY: severe R sided abd pain, neg US COMPARISON: 03/07/2024 FINDINGS: Abdomen: There is a 5 mm right upper lobe nodule, stable when compared to the prior exam, best seen on image #15 of series 3. There is also a left lower lobe nodule, best seen on image #19 of series 3, 4 mm in size, also stable. The liver parenchyma demonstrates a low-attenuation focus in the anterior right lobe of the liver measuring 9 mm in size, stable. The gallbladder is contracted. The spleen, pancreas, adrenals and kidneys appear unremarkable. The aorta is normal in caliber. There is no free fluid or adenopathy. Pelvis: The appendix is not identified. The urinary bladder is unremarkable. There is no free fluid or adenopathy. There is a small left inguinal hernia, and a small portion of the bladder extends into the hernia, best seen on image #119 of series 3. IMPRESSION: 2 small 5 mm or less in size pulmonary nodules as described above. Stable since the prior CT of 03/07/2024. There is a low-attenuation focus in the anterior right lobe of the liver, 9 mm in size, stable. Small left inguinal hernia, with a portion of the bladder extending into the hernia, best seen on image #119 of series 3. Reviewed, Interpreted and Dictated by Ayaz Torres MD Transcribed by Ary Pickens Authenticated and [facility]
[2025-01-04 11:05] LABS: Basophils % 0.5 % (0.1-2.0); Eosinophils # 0.2 Kmm3 (0.0-0.4); Eosinophils % 2.4 % (0.1-12.0); Hematocrit 41.5 % (42.0-52.0); Hemoglobin 14.6 g/dL (14.1-18.0); Lymphocytes # 1.8 K/mm3 (0.7-4.5); Lymphocytes % 22.8 % (10-50); Mean Corpuscular HGB Conc 35.2 g/dL (31.8-35.4); Mean Corpuscular Hemoglobin 31.5 pg (27.0-31.2); Mean Corpuscular Volume 89.6 fl (80-94); Mean Platelet Volume 10.7 fl (7.4-10.4); Monocytes # 0.6 K/mm3 (0.1-1.0); Monocytes % 7.4 % (1.7-9.3); Neutrophils # 5.3 K/mm3 (1.8-7.8); Neutrophils % 66.5 % (37.0-80.0); Nucleated Red Blood Cells # 0 10^3/uL; Nucleated Red Blood Cells % 0 %; Platelet Count 238 K/mm3 (142-424); Red Blood Count 4.63 M/mm3 (4.60-6.20); Red Cell Distribution Width 12.2 % (11.5-17.5); Red Cell Distribution Width-SD 40.2 fL; White Blood Count 7.9 K/mm3 (4.8-10.8)
[2025-01-04 11:07] LABS: Albumin Level 4.1 g/dl (3.5-5.0); Chloride 107 mmol/L (98-107); Potassium 4.4 mmoL/L (3.5-5.1); Sodium 141 mmol/L (136-145)
[2025-01-04 11:10] LABS: Alanine Aminotransferase 21 U/L (12-78); Albumin/Globulin Ratio 1.3 (1.1-1.8); Alkaline Phosphatase 72 U/L (38-126); Anion Gap 12.4 mEq/L (5-15); Aspartate Amino Transferase 23 U/L (17-59); Bilirubin,Total 1.3 mg/dl (0.2-1.3); Blood Urea Nitrogen 18 mg/dl (9-20); Calcium 9.1 mg/dl (8.4-10.2); Carbon Dioxide 26 mmol/L (22.0-30.0); Creatinine Clearance Estimated 134 mL/min (50-200); Estimated Glomerular Filt Rate 87 ml/min (>60); GFR (African American) 105 ML/MIN (>60); Globulin 3.1 g/dL (1.3-3.2); Glucose 117 mg/dl (74-100); Total Protein,Serum 7.2 g/dl (6.3-8.2)
--- NOTE | 2025-01-04 11:13 | HMH.EDGENADL ---
Discharge Plan Disposition Patient Disposition: Home, Self-Care Chief Complaint: Abdominal Pain Prescriptions Prescriptions: No Action sildenafil [Viagra] 100 mg tablet 100 mg PO DAILY PRN (Reason: sexual activity) Qty: 10 10RF Rx Instructions: administer 30 minutes to 4 hours before activity polyethylene glycol 3350 [Miralax] 17 gram/dose powder 17 g PO BID Qty: 238 10RF sofosbuvir-velpatasvir [Epclusa] 400-100 mg tablet 1 tab PO DAILY 84 Days Qty: 84 0RF Clenpiq 10 mg-3.5 gram- 12 gram/175 mL solution 175 ml PO DAILY Qty: 350 0RF Rx Instructions: take first dose at 5-9PM evening before colonoscopy; 2nd dose the next day approximately 5 hrs before colonoscopy oxycodone 5 mg tablet 5 mg PO TID PRN (Reason: severe abdominal pain) Qty: 9 0RF ondansetron 4 mg tablet,disintegrating 4 mg PO Q8H PRN (Reason: nausea and vomiting) 4 Days Qty: 12 0RF Referrals Follow up/Referrals: Sav Chandra MD [Primary Care Provider] - See instructions Activity Restrictions/Add. Instructions Additional Instructions/Restrictions: Call your family doctor to establish care for this visit to the emergency department and schedule follow-up within 48 hours to ensure improvement. If you have any worsening of your condition or any other concerning signs or symptoms, return to the emergency department or your primary care doctor for further evaluation. Take Tylenol 1000 mg every 6 hours (4 times daily) and ibuprofen 400 mg every 6 hours (4 times daily) as needed with food and water to prevent GI upset and kidney damage. Clinical Impressions Clinical Impression: Abdominal pain Instructions Patient Instructions: DI for Acute Abdominal Pain Print Language Print Language: Hungarian Discharge ED Provider: Tony Garza General Adult HPI General Chief complaint: Abdominal Pain Stated complaint: R. Side abd pain Time Seen by Provider: 01/04/25 10:31 Mode of Arrival: Ambulatory Source of Information: Patient Description of Symptoms (Recalled from ER Triage Doc. by RN): Patient reports that around 4 pm yesterday he began to have right sided pain. Also states that he was constipated but had a bowel movement and then began to have diarrhea. History of Present Illness HPI narrative: Please note that above description of symptoms, in this electronic medical record under categorization of recalled from ER triage doctor by RN are reflective of an initial nursing assessment, however, is not reflective of my full history and physical exam that was personally taken and clarified. Consequentially, this preceding description of symptoms, which may include the patient's categorized chief complaint in the EMR, do not reflect my personal clinical impression, and the ultimate description of history of present illness and patient stated complaints should be deferred to this section of the note. Unless stated otherwise or congruent with this section of the note, additional signs, symptoms, or incongruence should be interpreted as inaccurate with my clinical impression. Related Data Previous Rx's ?Medication ?Instructions ?Recorded polyethylene glycol 3350 17 17 g PO BID #238 grams 02/01/24 gram/dose oral powder (Miralax) sildenafil 100 mg tablet (Viagra) 100 mg PO DAILY PRN sexual 02/01/24 activity #10 tabs sofosbuvir 400 mg-velpatasvir 100 1 tab PO DAILY 12 weeks #84 tabs 02/27/24 mg tablet (Epclusa) ondansetron 4 mg disintegrating 4 mg PO Q8H PRN nausea and 03/07/24 tablet vomiting 4 days #12 tabs oxycodone 5 mg tablet 5 mg PO TID PRN severe abdominal 03/07/24 pain #9 tabs sod picosulf 10 mg-magnes 3.5 175 ml PO DAILY 2 doses #350 mL 03/14/24 gram-citric 12 gram/175 mL oral solution (Clenpiq) Allergies Allergy/AdvReac Type Severity Reaction Status Date / Time Penicillins (PENICILLINS) Allergy Intermediate Verified 03/14/24 13:33 [facility] Disclaimer: The information contained in this section may have been updated after the patient was seen, as this information can be updated by other users. Medical History Strain of right upper arm Right shoulder strain Skin infection Medical clearance for incarceration URI (upper respiratory infection) Pancreatitis Surgical History History of mandibular surgery History of surgery on left wrist Family History Other Cancer Coronary artery disease Diabetes Hypertension Social History Smoking Status: Current every day smoker tobacco type: e-cigarettes alcohol intake: never current occupational status: unemployed Travel in the last 8 weeks: None Have you lived/traveled outside US in past 30 days?: No Contact w/someone who lives/traveled outside US past 30 days?: No Exposure to someone with infectious disease in past 14 days?: No Do you have a fever (greater than 100.4 F or 38 C)?: No Have you tested positive for COVID-19: No Exposed to someone with COVID-19 in past 14 days?: No Do you have a sore throat?: No Do you have a cough?: No Do you have any weakness?: No Do you have any diarrhea?: No Are you experiencing any unusual bleeding?: No Do you have any muscle aches/pain?: No Do you have any abdominal pain?: Yes Are you experiencing loss of taste or smell?: No Other Medical History Have you received the Flu Vaccine for this season: No Have you received the Pneumonia Vaccine: No ROS Obtained: Yes All systems reviewed & no additional complaints except as documented Physical Exam General General appearance: alert and in no apparent distress Head Head exam: atraumatic and normocephalic Eye Eye exam: Present normal appearance, PERRL and EOMI Neck Neck exam: Present normal inspection, full ROM and trachea midline Respiratory Respiratory exam: Absent respiratory distress, wheezes, stridor, accessory muscle use or prolonged expiratory phase Cardiovascular Cardiovascular exam: Present other (Pulses equal symmetric in upper and lower extremities) Abdominal Exam Abdominal exam: Present soft; Absent distention, tenderness, guarding, rebound, rigidity or pulsatile mass Extremities Exam Extremities exam: Absent edema Back Exam Back exam: Absent CVA tenderness (R) or CVA tenderness (L) Neurological Exam Neurological exam: Present alert, oriented X3 and CN II-XII intact; Absent motor sensory deficit Skin Skin exam: Present warm and dry; Absent diaphoresis or erythema Medical Decision Making Medical Records Medical records reviewed: Yes I reviewed the patient's medical records. Screening: Per USPSTF and CDC recommendations, given the prevalence of disease in our region, it is our hospital?s policy to screen for HIV and viral Hepatitis for all patients aged 18 and over and those with ongoing risk factors. Osman Inquiry Pt receiving controlled substance: No Osman was queried for this patient: No Vital Signs: 01/04/25 10:36 Temperature 98.2 F Temperature Source Oral Pulse Rate [Radial] 88 Respiratory Rate 18 Blood Pressure [Right Arm] 115/79 Blood Pressure Mean [Right Arm] 91 Blood Pressure Source [Right Arm] Automatic Cuff Blood Pressure Position [Right Arm] Sitting 02 Sat by Pulse Oximetry 97 Oxygen Delivery Method Room Air Lab Data Lab Results 01/04/25 10:45: WBC 7.9, RBC 4.63, Hgb 14.6, Hct 41.5 L, MCV 89.6, MCH 31.5 H, MCHC 35.2, RDW 12.2, Plt Count 238, MPV 10.7 H, Neut % (Auto) 66.5, Lymph % (Auto) 22.8, Robeson % (Auto) 7.4, Eos % (Auto) 2.4, Baso % (Auto) 0.5, Neut # (Auto) 5.3, Lymph # (Auto) 1.8, Robeson # (Auto) 0.6, Eos # (Auto) 0.2, Baso # (Auto) 0.0, PT 10.0 L, INR 0.88 L, APTT 24.8, Sodium 141, Potassium 4.4, Chloride 107, Carbon Dioxide 26, Anion Gap 12.4, BUN 18, Creatinine 0.90, Estimated Creat Clear 134, Estimated GFR 87, Est GFR ( Amer) 105, Glucose 117 H, Calcium 9.1, Total Bilirubin 1.3, AST 23, ALT 21, Alkaline Phosphatase 72, Total Protein 7.2, Albumin 4.1, Globulin 3.1, Albumin/Globulin Ratio 1.3, Lipase 409 H, HIV Ag/Ab Combo Qual Negative 01/04/25 12:03: Urine Color Yellow, Urine Appearance Clear, Urine pH 5.5, Ur Specific Sobieski 1.015, Urine Protein Negative, Urine Glucose (UA) Negative, Urine Ketones Negative, Urine Blood Negative, Urine Nitrate Negative, Urine Bilirubin Negative, Urine Urobilinogen 0.2, Ur Leukocyte Esterase Negative, Urine RBC None, Urine WBC None, Ur Squamous Epith Cells Occasional, Urine Bacteria Trace 01/04/25 10:45 01/04/25 10:45 Orders (Tests/Meds): ED MEDICATIONS Discontinued Medications Generic Name Dose Route Start Last Admin Trade Name Freq PRN Reason Stop Dose Admin Iopamidol 75 ml 01/04/25 11:22 01/04/25 11:23 Iopamidol-370 (76%);100ml Bottle IV 01/04/25 11:23 75 ml ONCE ONE Administration Ketorolac Tromethamine 15 mg 01/04/25 11:02 01/04/25 11:15 Ketorolac 30mg/Ml Vial IV 01/04/25 11:03 15 mg ONCE ONE Administration Sodium Chloride 10 ml 01/04/25 11:22 01/04/25 11:23 Sodium Chloride 0.9% 10ml Syr (Rad Only) IV 01/04/25 11:23 10 ml ONCE ONE Administration ORDERS Category Date Time Status CT abdomen pelvis w con Stat Cat Scan 01/04/25 11:02 Taken POCUS Point of Care (ER Only) Stat Exams 01/04/25 10:42 Taken Complete Blood Count Auto Diff Stat Lab 01/04/25 10:45 Completed Comprehensive Metabolic Panel Stat Lab 01/04/25 10:45 Completed HIV Combo Stat Lab 01/04/25 10:45 Completed Lipase Stat Lab 01/04/25 10:45 Completed PT INR [Prothrombin Time INR] Stat Lab 01/04/25 10:45 Completed PTT [Activated Partial Thrombo Time] Stat Lab 01/04/25 10:45 Completed UA [Urinalysis and Microscopic] Stat Lab 01/04/25 12:03 Completed Medical Decision Narrative: 59-year-old male history of hepatitis C recently finished treatment in November 2024, hypertension, hyperlipidemia presenting with abdominal pain. He states that abdominal pain started yesterday, 01/03 when he was doing nothing in particular, unloading groceries, but states he was not lifting any heavy bags or anything. Was acute in onset, right side of his abdomen, did not radiate. Initially mild in intensity, made worse just with activity throughout the day got up to a 9 out of 10, laid down to go to sleep, states that when he lays down on his back it completely goes away. Because it recurred when he got up out of bed this morning, came in for further evaluation. States that while he is laying back and not moving, pain is 0 out of 10 has not taken anything for it. No urinary symptoms, vomiting, diarrhea (1 episode of loose stool, but not multiple) no overlying skin changes. No history of abdominal surgeries. History was obtained via conversation with patient. On arrival, patient hemodynamically stable, alert, oriented x4, appropriate, GCS 15, moving all extremities spontaneously, pupils equal and reactive to light. Full physical exam performed and significant for well-appearing male no acute distress. Abdomen is actually soft, nontender, nondistended with no evidence of tenderness on my exam. Not made worse with deep palpation. No overlying skin changes. No evidence of hernia, no evidence of flank pain and unremarkable exam overall. Differential includes PUD, gastritis, enteritis, gastroenteritis, pancreatitis, SBO, colitis, diverticulitis, nephrolithiasis, UTI, cholecystitis, choledocholithiasis, appendicitis, torsion, hepatitis, aortic pathology, mesenteric ischemia among others. Patient placed on continuous cardiac monitoring and continuous pulse ox with initial blood pressure 115/79, heart rate 88, saturation 97 on room air. Patient was given Toradol for symptomatic management and correction of underlying abnormalities. Bedside [id number]-ry-[id number] ultrasound performed of the right upper quadrant, no evidence of right upper quadrant abnormality, gallbladder normal. No evidence of hydronephrosis on the right. Workup independently interpreted and significant for nonactionable hematologic labs. Coags normal, LFTs normal as well. Lipase only mildly elevated, not meeting criteria for acute pancreatitis. Urinalysis normal as well. On independent interpretation of imaging, no acute intra-abdominal pathology to explain patient's pain. See radiology read for full review of final results. Reevaluation, patient still resting comfortably. Given patient presentation, workup, history, this most likely represents acute idiopathic abdominal pain. Because patient at baseline without signs or symptoms of clinical decompensation, deemed appropriate for discharge. Results were relayed to patient who voiced understanding and were agreeable to outpatient management and follow up. I discussed my clinical impression with patient and answered all questions. At this time, the evidence for any other entities in the differential is insufficient to warrant any further testing or ED observation. This was explained as well. Advisory was given that persistent or worsening symptoms require further evaluation. I confirmed the understanding of this discussion. Social Services Analyst disclaimer Much of this encounter note is an electronic cam maker spoken language to printed text. Electronic cam maker of the spoken language may permit errors. Although I have reviewed the note, some errors may still exist. Procedures Limited Ultrasound Indication:: Limited RUQ ultrasound Indication: Abdominal pain Identified structures: -Gallbladder -Gallbladder wall -Common bile duct -Liver Findings: Sonographic Paige sign: Absent Gallstones: Absent Sludge: Absent Pericholecystic fluid: Absent Maximal GB wall thickness (mm) (normal is </= 3mm): Normal Common bile duct width (mm) (normal is </= 6mm): Normal Gallbladder width (cm) (normal is < 4cm): Normal Gallbladder length (cm) (normal is < 10cm): Normal Impression: Normal right upper quadrant ultrasound Images were saved to permanent archive The study was technically adequate CPT 58804-50 This study was performed by me, and I personally interpreted all images/videos. Based on my clinical judgement, these images were adequate and did not necessitate further imaging. Critical Care Critical Care Time Critical Care Time: No
[2025-01-04] MEDS: KETOROLAC 30MG/ML VIAL 15 MG IV (11:15)
--- NOTE | 2025-01-04 11:19 | PC.NURSE ---
pt to ct scan via wheelchair
[2025-01-04] MEDS: SODIUM CHLORIDE 0.9% 10ML SYR (RAD ONLY) 10 ML IV (11:23)
[2025-01-04] MEDS: IOPAMIDOL-370 (76%);100ML BOTTLE 75 ML IV (11:23)
[2025-01-04 11:25] LABS: Activated Partial Thrombo Time 24.8 seconds (22.8-30.6); INR 0.88 (0.9-1.1)
[2025-01-04 11:34] LABS: Lipase 409 U/L (23-300)
--- NOTE | 2025-01-04 11:35 | PC.NURSE ---
pt back from ct scan
[2025-01-04 12:08] LABS: Microscopic, Urine URINE MICROSCOPIC (MICROSCOPIC)
[2025-01-04 12:09] LABS: Appearance,Urine CLEAR (Clear); Bilirubin,Urine Negative (Negative); Blood, Urine Negative (Negative); Color,Urine YELLOW (Yellow); Glucose,Urine (UA) Negative (Negative); Ketones,Urine Negative (Negative); Leukocyte Esterase,Urine Negative (Negative); Nitrate,Urine Negative (Negative); PH,Urine 5.5 (5.0-8.5); Protein,Urine Negative (Negative); Specific Gravity, Urine 1.015 (1.005-1.030); Urobilinogen,Urine 0.2 EU/dl (0.2)
[2025-01-04 12:16] LABS: HIV Combo NEGATIVE (Negative)
--- NOTE | 2025-01-04 12:25 | PC.NURSE ---
Called radiology to check on status of mr reads. There are prelim reads and these were given to Dr Garza.
[2025-01-04 12:27] LABS: Bacteria,Urine Trace /lpf; Squamous Epithelial Cell,Urine Occasional #/hpf (0-5)
[2025-01-04 13:00] VITALS: BP 120/70; PULSE 80; RESP 17; TEMP 36.7; O2SAT 98
== END 2025-01-04 13:05 | disposition home or self-care (01) ==
PROVIDERS: Emergency Provider Emergency Medicine; PCP Family Medicine
DX: R10.11 Right upper quadrant pain (principal); Z11.4 Encounter for screening for human immunodeficiency virus [HIV]
CPT/HCPCS: 74177; 80053; 81001; 83690; 85025; 85610; 85730; 87389; 96374; 99285; J1885; Q9967

== ENCOUNTER 2025-01-07 13:00 | Outpatient (CLI) | payer OTHER, SELFPAY ==
[2025-01-07 20:15] LABS: Albumin Level 4.3 g/dl (3.5-5.0); Chloride 109 mmol/L (98-107); Sodium 141 mmol/L (136-145)
[2025-01-07 20:16] LABS: Potassium 4.5 mmoL/L (3.5-5.1)
[2025-01-07 20:18] LABS: Alanine Aminotransferase 19 U/L (12-78); Anion Gap 14.5 mEq/L (5-15); Aspartate Amino Transferase 20 U/L (17-59); Blood Urea Nitrogen 20 mg/dl (9-20); Carbon Dioxide 22 mmol/L (22.0-30.0); Estimated Glomerular Filt Rate 77 ml/min (>60); GFR (African American) 93 ML/MIN (>60)
[2025-01-07 20:19] LABS: Albumin/Globulin Ratio 1.3 (1.1-1.8); Alkaline Phosphatase 90 U/L (38-126); Bilirubin,Total 1.1 mg/dl (0.2-1.3); Calcium 9.4 mg/dl (8.4-10.2); Globulin 3.2 g/dL (1.3-3.2); Glucose 108 mg/dl (74-100); Total Protein,Serum 7.5 g/dl (6.3-8.2)
[2025-01-07 21:04] LABS: Hepatitis C Ab Qual. W/ RFX REACTIVE (Negative)
[2025-01-10 10:54] LABS: HIV Combo NEGATIVE (Negative)
== END 2025-01-07 23:59 | disposition home or self-care (01) ==
LOC: LAB.DROPOF 01-08 13:02
PROVIDERS: PCP Family Medicine; Visit Provider Family Medicine
DX: R19.4 Change in bowel habit (principal); B19.20 Unspecified viral hepatitis C without hepatic coma; R10.9 Unspecified abdominal pain
CPT/HCPCS: 80053; 86803; 87389; 87522

== ENCOUNTER 2025-01-28 13:37 | Outpatient (CLI) | payer OTHER, SELFPAY ==
--- NOTE | 2025-01-28 14:23 | XR_ITS ---
FINAL REPORT CLINICAL HISTORY: erosive oa, lower back pain COMPARISON: none FINDINGS: 3 views of the lumbar spine were obtained. There is no evidence of fracture. Minimal spondylolisthesis of L4 on L5. The vertebrae are normal in height. Advanced disc space narrowing of L5-S1. Prominent facet sclerosis is noted in the lower lumbar spine. No paraspinous soft tissue abnormalities identified. IMPRESSION: Degenerative changes without acute bony abnormality. Reviewed, Interpreted and Dictated by Ayaz Torres MD Transcribed by Mandy Ash Authenticated and [facility]
--- NOTE | 2025-01-28 14:23 | XR_ITS ---
FINAL REPORT TECHNIQUE: 2 views right knee CLINICAL HISTORY: erosive oa, knee pain COMPARISON: None FINDINGS: RIGHT KNEE: 2 images of the right knee were obtained. There is no evidence of fracture or dislocation. The joint spaces are intact. There is no soft tissue abnormality identified. IMPRESSION: No acute bony abnormality. Reviewed, Interpreted and Dictated by Ayaz Torres MD Transcribed by Ary Pickens Authenticated and [facility]
--- NOTE | 2025-01-28 14:23 | XR_ITS ---
FINAL REPORT TECHNIQUE: Left knee 2 views CLINICAL HISTORY: erosive oa, lt knee pain COMPARISON: None FINDINGS: LEFT KNEE: Two images of the left knee were obtained. There is no evidence of fracture or dislocation. The joint spaces are intact. There is no soft tissue abnormality identified. IMPRESSION: No acute bony abnormality. Reviewed, Interpreted and Dictated by Ayaz Torres MD Transcribed by Ary Pickens Authenticated and [facility]
--- NOTE | 2025-01-28 14:23 | XR_ITS ---
FINAL REPORT TECHNIQUE: 3 views CLINICAL HISTORY: erosive oa, neck pain COMPARISON: None FINDINGS: AP and lateral views of the cervical spine were obtained. There is no prior exam for comparison. There is no acute fracture or malalignment. Vertebral body height is preserved. There is moderate disc space narrowing of the C5-6 and C6-7 discs. There is mild reversal of the cervical lordosis. Vascular calcifications are noted in the right and left paraspinal soft tissues on the AP view, consistent with carotid artery calcification. IMPRESSION: Degenerative changes C5-6 and C6-7, with no acute process. Carotid artery calcifications are present bilaterally. Reviewed, Interpreted and Dictated by Ayaz Torres MD Transcribed by Ary Pickens Authenticated and . [facility]
== END 2025-01-28 23:59 | disposition home or self-care (01) ==
LOC: RAD 13:38
PROVIDERS: PCP Family Medicine; Visit Provider Family Medicine
DX: M43.16 Spondylolisthesis, lumbar region (principal); M47.812 Spondylosis without myelopathy or radiculopathy, cervical region; M17.0 Bilateral primary osteoarthritis of knee
CPT/HCPCS: 72040; 72100; 73560

== ENCOUNTER 2025-03-20 09:40 | Outpatient (CLI) | payer OTHER, SELFPAY ==
[2025-03-20 21:31] LABS: Hematocrit 41.7 % (42.0-52.0); Hemoglobin 14.2 g/dL (14.1-18.0); Immature Granulocytes % 0.2 %; Mean Corpuscular HGB Conc 34.1 g/dL (31.8-35.4); Mean Corpuscular Hemoglobin 30.5 pg (27.0-31.2); Mean Corpuscular Volume 89.7 fl (80-94); Nucleated Red Blood Cells % 0 %; Platelet Count 234 K/mm3 (142-424); Red Blood Count 4.65 M/mm3 (4.60-6.20); Red Cell Distribution Width-SD 39.2 fL; White Blood Count 8.9 K/mm3 (4.8-10.8)
[2025-03-20 22:05] LABS: Alanine Aminotransferase 17 U/L (12-78); Albumin Level 4.4 g/dl (3.5-5.0); Albumin/Globulin Ratio 1.6 (1.1-1.8); Alkaline Phosphatase 76 U/L (38-126); Anion Gap 12.6 mEq/L (5-15); Aspartate Amino Transferase 21 U/L (17-59); Bilirubin,Total 1.1 mg/dl (0.2-1.3); Blood Urea Nitrogen 16 mg/dl (9-20); Calcium 9.3 mg/dl (8.4-10.2); Carbon Dioxide 29 mmol/L (22.0-30.0); Chloride 102 mmol/L (98-107); Creatinine,Serum 1.00 mg/dl (0.66-1.25); Estimated Glomerular Filt Rate 77 ml/min (>60); GFR (African American) 93 ML/MIN (>60); Globulin 2.8 g/dL (1.3-3.2); Glucose 92 mg/dl (74-100); Lipase 162 U/L (23-300); Potassium 4.6 mmoL/L (3.5-5.1); Sodium 139 mmol/L (136-145); Total Protein,Serum 7.2 g/dl (6.3-8.2)
[2025-03-22 08:17] LABS: Testosterone,Total 278 ng/dL (264-916)
--- OUTSIDE RECORDS SUMMARY | 2025-03-25 09:54 | XMS_ITS | Clinical Summary ---
Author Organization Healthcare Address [address] [place] [address] Care Team Providers Care Corporate Compliance Officer Name Role Phone Pcp, No Primary Care Provider Unavailabl e Allergies Active Allergy Reactions Criticality Noted Date Comments Penicillins Rash Low 03/19/2024 Medications FAMOTIDINE PO Take 1 tablet by mouth 1 (one) time each day if needed (heartburn). Active atorvastatin (Lipitor) 80 MG tablet Take 1 tablet (80 mg) by mouth every night. 30 tablet 3 4 Active fluticasone (Flonase) 50 MCG/ACT nasal spray Administer 1 spray into each nostril 1 (one) time each day. Shake gently. Before first use, prime pump. After use, clean tip and replace cap. 16 g 4 Active Active Problems Problem Noted Date Diagnosed Date Small vessel disease, cerebrovascular 04/05/2024 Resolved Problems Problem Noted Date Diagnosed Date Resolved Date Stroke-like symptoms 04/04/2024 024 Left-sided weakness 04/03/2024 04/05/20 24 Encounters Date Type Department Care Team Description 01/17/2025 Patient Outreach [facility] [address] [place] [address] Renetta Upton from Last 3 Months Social History Tobacco Use Types Packs/Day Years Used Date Smoking Tobacco: Every Day Smokeless Tobacco: Never Tobacco Cessation:Ready to Q uit: Not Asked; Counseling Given: Not Answered Comments:Vape Alcohol Use Standard Drinks/Week Comments Not Currently 0 (1 standard drink = 0.6 oz pur e alcohol) Humiliation, Afraid, Rape, and Kick questionnair e Answer Date Recorded Within the last year, have y ou been afraid of your partner or ex-partner? No 04/04/2024 Within the last year, have y ou been humiliated or emotionally abused in other ways by your partner or ex-partner? No Within the last year, have y ou been kicked, hit, slapped, or otherwise physically hurt by your partner or ex-partner? No 04/04/2024 Within the last year, have y ou been raped or forced to have any kind of sexual activity by your partner or ex-partner? No 04/04/2024 Hunger Vital Sign Answer Date Recorded Within the past 12 months, y ou worried that your food would run out before you got the money to buy more. Often true 04/04/20 24 Within the past 12 months, t he food you bought just didn't last and you didn't have money to get more. Often true 04/04/2024 PRAPARE - Transportation Answer Date Re corded In the past 12 months, has l ack of transportation kept you from medical appointments or from getting medications? Yes 03/19 In the past 12 months, has l ack of transportation kept you from meetings, work, or from getting things needed for daily living? Yes 04/04/2024 Housing Stability Vital Sign Answer Romie e Recorded In the last 12 months, was t here a time when you were not able to pay the mortgage or rent on time? Yes 04/04/2024 In the last 12 months, how many places have you lived? 3 04/04/2024 In the last 12 months, was t here a time when you did not have a steady place to sleep or slept in a penitentiary (including now)? Yes 04/04/2024 CAGE ASSESSMENT Answer Date Recorded Cage unable to access Not on file 04/04/2024 Maximum number of drinks you had on a given occasion in the last month? 0 drinks 04/04/2024 How many alcoholic Beverages do you typically drink in a week? 0 - 7 per week 04/04/2024 Have you ever felt you should CUT down on your d rinking? 0 04/04/2024 Have you been ANNOYED by peo ple criticizing your drinking? 0 04/04/2024 Have you felt GUILTY about your drinking? 0 04/04/2024 Have you had a drink first t jazz in the morning ([employer]) to steady your nerves or to get rid of a hangover? 0 04/04/2024 CAGE Questionnaire Score 0 024 Utilities Answer Date Recorded In the past 12 months has th e electric, gas, oil, or water company threatened to shut off services in your home? No 04/04/2024 Sex and Gender Information Value Date Recorded Sex Assigned at Not on file Legal Sex Male 8:43 PM EDT Gender Identity Not on file Sexual Orientation Not on file Last Filed Vital Signs Vital Sign Reading Time Taken Comments Blood Pressure 116/78 07/03/2024 3:00 PM EDT Pulse 75 07/03/2024 3:00 PM EDT Temperature 36.7 C (98 F) 07/03/2024 3:00 PM EDT Respiratory Rate 14 07/03/2024 3:00 PM EDT Oxygen Saturation 100% 07/03/2024 3:00 PM EDT Inhaled Oxygen Concentration - - Weight 107 kg (235 lb 3.7 oz) 04/03/2024 8:49 PM EDT Height 190.5 cm (6' 3 ) 03/19/2024 8:49 PM EDT Body Mass Index 29.4 03/19/2024 8:49 PM EDT Plan of Treatment Health Maintenance Due Date Last Done Comments [facility]-Depression Screening 1967 [facility]-Infant/Child/Adol SDOH Screenings 1965 [facility]-DTaP,Tdap,and Td Vaccine s (1 - Tdap) 1986 [facility]-Hepatitis B Vaccines (1 of 3 - 19+ 3-dose series) 1986 [facility]-Pneumococcal Vaccine: 50 + Years (1 of 2 - PCV) 1986 CT Colonography 2012 Colonoscopy 2012 FIT-DNA 2012 FIT 2012 FOBT 2012 Sigmoidoscopy 2012 [facility]-Colorectal Cancer Screening 2012 [facility]-Zoster Vaccines (1 of 2) 2017 [id number] Vaccine (2 - season) 2024 05/21/2021 [facility]- SDOH Screenings 10/05/2024 [facility]-Adult SDOH Screenings 10/05/2024 04/04/2024 [facility]-Influenza Vaccine (#1) 2025 [facility]-HIV Screening Completed 03/19/2024, 07/07/2020 [facility]-Hepatitis C Screening Completed 2023, 07/07/2020 [facility]-Obesity Intervention Completed 04/03/2024 HPV Vaccines Aged Out No longer eligi ble based on patient's age to complete this topic [facility]-HIB Vaccines Aged Out No longer e ligible based on patient's age to complete this topic [facility]-Hepatitis A Vaccines Aged Out No longer eligible based on patient's age to complete this topic [facility]-IPV Vaccines Aged Out No longer e ligible based on patient's age to complete this topic [facility]-Rotavirus Vaccines Aged Out No lo nger eligible based on patient's age to complete this topic Procedures Procedure Name Priority Date/Time Associated Diagnosis Comments HEPATITIS C ANTIBODY - ED W/REFLEX TO HCV QUANT PCR STAT 03/19/2024 9:52 PM EDT ED HIV 1/2 ANTIBODY/ANTIGEN SCREEN WITH REFLEX TO HIV I/II DIFFERENTIATION STAT 03/19/2024 9:52 PM EDT from Last 3 Months or Most Recently Relevant to Health Maintenance Results * ED HIV 1/2 Antibody/Antigen Screen w/Reflex to HIV 1/2 Differentiation (03/19/2024 9:52 PM EDT) HIV 1 & 2 Antibody/Antigen Screen Non Reactive Non Reactive 03/19/2024 10:33 PM EDT [facility] Comment:Screening for HIV 1 & 2 antibodies, and P24 antigen is NONREACTIVE. No confirmatory testing is required. Blood Venous blood specimen / Unknown Venipuncture / Unknown 03/19/2024 9:52 PM EDT 03/19/2024 9:59 PM EDT us Renae [facility] BLOOD ORDERABLES Final R esult [facility] [address] [place] [address] * (ABNORMAL) Hepatitis C Antibody - ED (03/19/2024 9:52 PM EDT) Hepatitis C Antibody Positive(A ) Negative 03/19/2024 10:29 PM EDT [facility] Blood Venous blood specimen / Unknown Venipuncture / Unknown 03/19/2024 9:52 PM EDT 03/19/2024 9:58 PM EDT us Renae [facility] BLOOD ORDERABLES Final R esult [facility] [address] [place] [address] from Last 3 Months or Most Recently Relevant to Health Maintenance Insurance [employer] [facility] MEDICAID Advance Directives * Full Code (Latest Code Status on File) Date Activated Date Inactivated Comments 04/03/2024 10:01 PM 04/05/2024 5:18 PM Question Answer Comments Patient has decision-making capacity? Yes Care Teams Corporate Compliance Officer Relationship Specialty Start Date End Date Pcp, No [address] [place] [address] PCP - General Family Medicine 09/01/22
--- OUTSIDE RECORDS SUMMARY | 2025-03-25 09:54 | XMS_ITS | Encounter Summary ---
Author Organization Healthcare Address [address] [place] [address] Care Team Providers Care Pharmaceutical Officer Name Role Phone Pcp, No Primary Care Provider UnavailRoxanna Bowden LPN Unavailable Unavailable Mamie McnealW Unavailable Unavailable Encounter Details Date Type Department Care Team (Late st Contact Info) Description 02/09/2024 Community Orders Community Practice [address] [place] [address] Sav Chandra MD [address] [place] [address] Left upper quadrant pain (Primary Dx); Disease of intestine Social History Tobacco Use Types Packs/Day Years Used Date Smoking Tobacco: Every Day Alcohol Use Standard Drinks/Week Comments Yes 0 (1 standard drink = 0.6 oz pure alcohol) Alcoholic Drinks/day: Social alcohol use Sex and Gender Information Value Date Recorded Sex Assigned at Not on file Legal Sex Male 8:43 PM EDT Gender Identity Not on file Sexual Orientation Not on file documented as of this encounter Plan of Treatment Not on file documented as of this encounter Visit Diagnoses Diagnosis Left upper quadrant pain- Primary Abdominal pain, left upper quadrant Disease of intestine Unspecified disorder of intestine documented in this encounter Additional Health Concerns Infection Onset Date Last Indicated Resolved Time C. difficile Rule-Out 03/20/2024 03/20/20242023 8:49 AM EDT Gastrointestinal Rule-Out 03/20/2024 03/20/2024 8:49 AM EDT documented as of this encounter Care Teams Pharmaceutical Officer Relationship Specialty Start Date End Date Pcp, No [address] [place] [address] PCP - General Family Medicine 09/01/22 Roxanna Hernandez LPN [employer] [place] [address] TCM Nurse 04/09/24 05/09/24 Mamie Mcneal, COORDINATOR [place] [address] Electrical And Radio Mechanic Lead Software Tester 03/19/24 01/16/25 documented as of this encounter
--- OUTSIDE RECORDS SUMMARY | 2025-03-25 09:54 | XMS_ITS | Patient Health Record ---
Author Organization [facility] Address [address] [facility] [address] [place] [address] Care Team Providers Care Spanish Language Lecturer Name Role Phone Charu Garcia Unavailable [phone] Shruti Morley Unavailable [phone] Allergies Allergen (clinical drug ingredient) Drug/Non Drug Allergy documented on EMR Reaction Allergy Type Onset Date Status Penicillin Unknown Drug Allergy Active Reason For Referral No Information Medications Medication SIG (Take, Route, Frequency, Duration) Notes Start Date End Date Status Docusate Sodium 100 MG 1 capsule as needed Orally Once a day Active Fluticasone Propionate 50 MCG/ACT 1 spray in each nostril Nasally Twice a day Active Pepcid 20 MG 1 tablet Orally 2 xday Active hydrOXYzine HCl 25 MG 1 tablet as needed Orally Three times a day for 30 days 07/27/2024 Active QUEtiapine Fumarate 100 MG 1 tablet Orally Once a day for 30 days Pt is d/c 50 mg and increasing to 100 mg qHS. Pt at [place]. 08/07/2024 Active CeleXA 20 MG 1 tablet Orally Once a day 07/28/2024 Active Social History Tobacco Use: Social History Observation Description Date Details (start date - stop date) Current Smoker NA - NA Sex Assigned At : Social History Observation Description Sex Assigned At Male Tobacco Control (Standard) Question Answer Notes Tobacco use: Current smoker How often do you smoke cigarettes? Every day How many cigarettes a day do you smoke? 11-20 Are you interested in quitting? 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) Active confirmed Problem Attention deficit disorder, unspecified type (F98.8) Active confirmed Problem 29822232 Sleep disturbance (G47.9) Active confirmed Problem 921643402 Chronic hepatitis C without hepatic coma (B18.2) Active confirmed Problem 629861624 Recurrent depression (F33.9) Active confirmed Problem 37128018956873 Hx of hepatitis C (Z86.19) Active confirmed Vital Signs Heart Rate 82 /min 08/09/2024 Temperature 97.6 degrees Fahrenheit 08/09/2024 Respiratory Rate 14 /min 08/09/2024 Height-cm 193.04 cm 08/09/2024 Oximetry 99 % 08/09/2024 Blood pressure diastolic 91 mm Hg 08/09/2024 Weight-kg 101.15 kg 08/09/2024 Height 76 in 08/09/2024 Blood pressure systolic 138 mm Hg 08/09/2024 Weight 223.0 lbs 08/09/2024 BMI 27.14 kg/m2 08/09/2024 Encounters Encounter Location Date Provider Diagnosis [facility] [address] [address] 07/27/2024 Charu Radha Severe opioid use disorder F11.20 ; Amphetamine-type substance use disorder, severe F15.20 ; Cocaine abuse, uncomplicated F14.10 ; High risk heterosexual behavior Z72.51 ; Depression, unspecified depression type F32.A and Anxiety disorder, unspecified type F41.9 [facility] [address] [address] 08/07/2024 Shruti Wilp Sleep disturbance G4 7.9 ; Recurrent depression F33.9 and Hx of hepatitis C Z86.19 [facility] [address] [address] 08/09/2024 Shruti Wilp Chronic hepatitis C without hepatic coma B18.2 Assessments Encounter Date Diagnosis (ICD Code) Assessment Notes Treatment Notes Treatment Clinical Notes Section Notes 07/27/2024 Severe opioid use disorder (ICD-10 - F11.20) 07/27/2024 Amphetamine-type substance use disorder, severe (ICD-10 - F15.20) 08/07/2024 Sleep disturbance (ICD-10 - G47.9) 08/07/2024 Recurrent depression (ICD-10 - F33.9) Pt educated that the Celexa may take 2-3 wks to get to theraputic range and to give it more time to work. Pt verbalized understanding. 08/09/2024 Chronic hepatitis C without hepatic coma (ICD-10 - B18.2) 08/07/2024 Hx of hepatitis C (ICD-10 - Z86.19) Pt had lab work drawn but the results are not back yet to detemine current Hep C status and FIB-4 scoring. Pt verbalized understanding and we will try to get results back so treatment can be started if needed. 07/27/2024 Cocaine abuse, uncomplicated (ICD-10 - F14.10) 07/27/2024 High risk heterosexual behavior (ICD-10 - Z72.51) 07/27/2024 Depression, unspecified depression type (ICD-10 - F32.A) 07/27/2024 Anxiety disorder, unspecified type (ICD-10 - F41.9) Plan Of Treatment Pending Test Test Name Order Date Comprehensive Metabolic Panel (CMP) 04/2024 CBC with Diff 07/27/2024 Chlamydia and Gonorrhea Panel 07/27/2024 Hepatitis B Core IgM Antibody 07/27/2024 Hepatitis B Surface Antibody 07/27/2024 Hepatitis B Surface Antigen 07/27/2024 Hepatitis B Total Core Antibody 07/27/20 24 Hepatitis C Antibody with Reflex 024 HIV Ag/Ab with Reflex to HIV-1 Quantitat brendon NAAT 07/27/2024 PT with INR 07/27/2024 Syphilis with Reflex to RPR Titer and TP -PA Confirmation 07/27/2024 T. vaginalis 07/27/2024 TSH with Reflex to Free T3 and Free T4 1 09/26/2023 Insurance Providers Payer Name Payer Address Payer Phone Subscriber Number Group Number Insured Name Patient Relationship to Insured Coverage Start Date Coverage End Date [employer] [place] [address] [address] [place] [phone] [id number] Pio Mcfarland Self - patient is the insured Medical (General) History Medical History History ICD Code Hep C GERD Seasonal allergies Anxiety insomnia Surgical History Surgery Date(Month/Year) L wrist surg fracture repair Hospitalization History Reason Date(Month/Year) Stroke 06/12
--- OUTSIDE RECORDS SUMMARY | 2025-03-25 09:54 | XMS_ITS ---
Author Organization [facility] Address [address] [place] [address] Care Team Providers Care Trimmer Machine Name Role Phone Pcp, No Primary Care Provider Unavailabl e Hepatitis C Program Status:Active (Active) Start date:03/19/2024 Enrollment date:03/19/2024 Enrollment reason:HCV Continued Care and Services Coordination
--- OUTSIDE RECORDS SUMMARY | 2025-03-25 09:54 | XMS_ITS | Encounter Summary ---
Author Organization Healthcare Address [address] [place] [address] Care Team Providers Care Logistic Manager Name Role Phone Pcp, No Primary Care Provider UnavailRoxanna Bowden METAL FRAMER Unavailable Unavailable Mamie Mcneal CUSTOM DECORATING CONSULTANT Unavailable Unavailable Reason for Referral * Consultation (Routine) - Authorized Specialty Diagnoses / Procedures Referred By Josefina corral Referred To Contact Gastroenterology Diagnoses LUQ abdominal pain Disease of intestine Sav Chandra MD [address] [place] [address] Phone: tel: fax: Referral ID Status Reason Start Date Expiration Date Visits Requested Visits Authorized [id number] Authorized Specialty Services Required 02/21/2024 08/22/2025 1 1 Encounter Details Date Type Department Care Team (Late st Contact Info) Description 02/21/2024 Community Orders Community Practice [address] [place] [address] Sav Chandra MD [address] [place] [address] LUQ abdominal pain (Primary Dx); Disease of intestine Social [...] as of this encounter Plan of Treatment Scheduled Referrals Name Type Priority Associated Diagnoses Order Schedule Ambulatory referral to Gastroenterology Outpatient Referral Routine LUQ abdominal pain Disease of intestine Expected: 02/21/2024 (Approximate), Expires: 08/22/2025 documented as of this encounter Visit Diagnoses Diagnosis LUQ abdominal pain- Primary Abdominal pain, left upper quadrant Disease of intestine Unspecified disorder of intestine documented in this encounter Additional Health Concerns Infection Onset Date Last Indicated Resolved Time C. difficile Rule-Out 03/20/2024 03/20/20242023 8:49 AM EDT Gastrointestinal Rule-Out 03/20/2024 03/20/2024 8:49 AM EDT documented as of this encounter Care Teams Logistic Manager Relationship Specialty Start Date End Date Pcp, No [address] [place] [address] PCP - General Family Medicine 09/01/22 Roxanna Hernandez LPN [employer]ED [place] [address] TCM Nurse 04/09/24 05/09/24 Mamie Mcneal, [place] [address] Sailing Officer Quartz Miner Blasting 03/19/24 01/16/25 documented as of this encounter
== END 2025-03-20 23:59 | disposition home or self-care (01) ==
LOC: LAB.DROPOF 03-25 09:41
PROVIDERS: PCP Family Medicine; Visit Provider Family Medicine
DX: N40.0 Benign prostatic hyperplasia without lower urinary tract symptoms (principal); R10.9 Unspecified abdominal pain; R53.83 Other fatigue
CPT/HCPCS: 80053; 83690; 84403; 85025; G0103

== ENCOUNTER 2025-04-13 17:36 | Emergency (ER) | payer OTHER, SELFPAY ==
--- OUTSIDE RECORDS SUMMARY | 2025-04-13 17:43 | XMS_ITS | Clinical Summary ---
Author Organization Healthcare Address [address] [place] [address] Care Team Providers Care Materials Planning Manager Name Role Phone Pcp, No Primary [...] Department Care Team Description 01/17/2025 Patient Outreach [facility] [address] [place] [address] Renetta Upton from Last 3 Months Social [...] place to sleep or slept in a retirement (including now)? Yes 04/04/2024 CAGE ASSESSMENT Answer [...] drink first t jazz in the morning (EYE-LONG TERM CARE PHLEBOTOMIST) to steady your nerves or to get [...] Date Last Done Comments [facility]-Depression Screening 1967 [facility]-/Child/Adol SDOH Screenings 1967 [facility]- SDOH Screenings 1985 [facility]-Adult SDOH Screenings 1985 [facility]-DTaP,Tdap,and Td Vaccine s (1 - Tdap) 1986 [facility]-Hepatitis B Vaccines (1 of 3 - 19+ 3-dose series) 1986 CT Colonography 2012 Colonoscopy 2012 FIT-DNA 2012 FIT 2012 FOBT 2012 Sigmoidoscopy 2012 [facility]-Colorectal Cancer Screening 2012 [facility]-Pneumococcal Vaccine: 50 + Years (1 of 1 - PCV) 2017 [facility]-Zoster Vaccines (1 of 2) 2017 [id number] Vaccine (2 - season) 2024 05/21/2021 [facility]-Influenza Vaccine (#1) 2025 [facility]-HIV Screening Completed [...] Reactive Non Reactive 03/19/2024 10:33 PM EDT [facility] Comment:Screening for HIV 1 & 2 antibodies, and P24 antigen is NONREACTIVE. No confirmatory testing is required. Blood Venous blood specimen / Unknown Venipuncture / Unknown 03/19/2024 9:52 PM EDT 03/19/2024 9:59 PM EDT us Renae [facility] BLOOD ORDERABLES Final R esult [facility] [address] [place] [address] * (ABNORMAL) Hepatitis C Antibody - ED (03/19/2024 9:52 PM EDT) Hepatitis C Antibody Positive(A ) Negative 03/19/2024 10:29 PM EDT [facility] Blood Venous blood specimen / Unknown Venipuncture / Unknown 03/19/2024 9:52 PM EDT 03/19/2024 9:58 PM EDT us Renae [facility] BLOOD ORDERABLES Final R esult [facility] [address] [place] [address] from Last 3 Months or Most Recently Relevant to Health Maintenance Insurance AET[employer] [facility] MEDICAID Advance Directives * Full Code (Latest Code Status on File) Date Activated Date Inactivated Comments 04/03/2024 10:01 PM 04/05/2024 5:18 PM Question Answer Comments Patient has decision-making capacity? Yes Care Teams Materials Planning Manager Relationship Specialty Start Date End Date Pcp, No [address] [place] [address] PCP - General Family Medicine 09/01/22
--- OUTSIDE RECORDS SUMMARY | 2025-04-13 17:43 | XMS_ITS ---
Author Organization [facility] Address [address] [place] [address] Care Team Providers Care Public Interviewer Name Role Phone Pcp, No Primary Care Provider Unavailabl e Hepatitis C Program Status:Active (Active) Start date:03/19/2024 Enrollment date:03/19/2024 Enrollment reason:HCV Continued Care and Services Coordination
--- OUTSIDE RECORDS SUMMARY | 2025-04-13 17:43 | XMS_ITS | Patient Health Record ---
Author Organization [facility] Address [address] [facility] [address] [place] [address] Care Team Providers Care Culinary Art Teacher Name Role Phone Charu Garcia Unavailable [phone] Shruti Morley Unavailable [phone] Allergies Allergen (clinical drug ingredient) Drug/Non Drug [...] increasing to 100 mg qHS. Pt at [place]. 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) Active confirmed Problem Attention deficit disorder, unspecified type (F98.8) Active confirmed Problem 00334404 Sleep disturbance (G47.9) Active confirmed Problem 128596436 Chronic hepatitis C without hepatic coma (B18.2) Active confirmed Problem 314738907 Recurrent depression (F33.9) Active confirmed Problem 02003238422376 Hx of hepatitis C (Z86.19) Active confirmed [...] 08/09/2024 Encounters Encounter Location Date Provider Diagnosis [facility] [address] [address] 07/27/2024 Charu Radha Severe opioid use disorder F11.20 ; Amphetamine-type substance use disorder, severe F15.20 ; Cocaine abuse, uncomplicated F14.10 ; High risk heterosexual behavior Z72.51 ; Depression, unspecified depression type F32.A and Anxiety disorder, unspecified type F41.9 [facility] [address] [address] 08/07/2024 Shruti Wilp Sleep disturbance G4 7.9 ; Recurrent depression F33.9 and Hx of hepatitis C Z86.19 [facility] [address] [address] 08/09/2024 Shruti Wilp Chronic hepatitis C without [...] Coverage End Date [employer] [place] [address] [address] [place] [address] [id number] Pio Mcfarland Self - patient is the insured Medical (General) History Medical History History ICD Code Hep C GERD Seasonal allergies Anxiety insomnia Surgical History Surgery Date(Month/Year) L wrist surg fracture repair Hospitalization History Reason Date(Month/Year) Stroke 06/12
--- OUTSIDE RECORDS SUMMARY | 2025-04-13 17:43 | XMS_ITS | Encounter Summary ---
Author Organization Healthcare Address [address] [place] [address] Care Team Providers Care Home Attendant Name Role Phone Pcp, No Primary Care Provider UnavailRoxanna Bowden GUITAR REPAIR TECHNICIAN Unavailable Unavailable Mamie Mcneal PRE PRESS PROOFER Unavailable Unavailable Reason for Referral * Consultation (Routine) - Authorized Specialty Diagnoses / Procedures Referred By Josefina corral Referred To Contact Gastroenterology Diagnoses LUQ abdominal pain Disease of intestine Sav Chandra MD [address] [place] [address] Phone: tel: fax: Referral ID Status Reason Start Date Expiration Date Visits Requested Visits Authorized [id number] Authorized Specialty Services Required 02/21/2024 08/22/2025 1 1 Encounter Details Date Type Department Care Team (Late st Contact Info) Description 02/21/2024 Community Orders Community Practice [address] [place] [address] Sav Chandra MD [address] [place] [address] LUQ abdominal pain (Primary Dx); Disease of [...] documented as of this encounter Care Teams Home Attendant Relationship Specialty Start Date End Date Pcp, No [address] [place] [address] PCP - General Family Medicine 09/01/22 Roxanna Hernandez LPN VAL[employer]ED [place] [address] TCM Nurse 04/09/24 05/09/24 Mamie Mcneal, [place] [address] Ramp Agent Licensed Loan Officer 03/19/24 01/16/25 documented as of this encounter
--- OUTSIDE RECORDS SUMMARY | 2025-04-13 17:43 | XMS_ITS | Encounter Summary ---
Author Organization Healthcare Address [address] [place] [address] Care Team Providers Care Forge Operator Helper Name Role Phone Pcp, No Primary Care Provider UnavailRoxanna Bowden LPN Unavailable Unavailable Mamie McnealW Unavailable Unavailable Encounter Details Date Type Department Care Team (Late st Contact Info) Description 02/09/2024 Community Orders Community Practice [address] [place] [address] Sav Chandra MD [address] [place] [address] Left upper quadrant pain (Primary Dx); Disease [...] documented as of this encounter Care Teams Forge Operator Helper Relationship Specialty Start Date End Date Pcp, No [address] [place] [address] PCP - General Family Medicine 09/01/22 Roxanna Hernandez LPN VALUE-[employer]ED [place] [address] TCM Nurse 04/09/24 05/09/24 Mamie Mcneal, [place] [address] Engineer Operations And Maintenance Radiation Therapy Technologist 03/19/24 01/16/25 documented as of this encounter
[2025-04-13 17:44] VITALS: BP 160/102; PULSE 67; RESP 16; TEMP 36.8; O2SAT 98; BMI 29.9
[2025-04-13] MEDS: TETRACAINE 0.5% OPTH SOL 15ML OP (18:07)
[2025-04-13] MEDS: NEOMYCIN-BACIT-POLYM OPHTH OINT 3.5GM TUBE 3.5 GM OP (18:07)
[2025-04-13] MEDS: FLUORESCEIN SODIUM 1MG STRIP 1 MG OP (18:08)
[2025-04-13 18:11] VITALS: BP 142/86; PULSE 69; RESP 16; TEMP 36.8; O2SAT 99
--- NOTE | 2025-04-13 20:05 | HMH.EDGENADL ---
Discharge Plan Disposition Patient Disposition: Home, Self-Care Condition: Good Prescriptions Prescriptions: No Action desvenlafaxine succinate [Pristiq] 100 mg tablet extended release 24 hr 100 mg PO DAILY Qty: 90 3RF docusate sodium 100 mg capsule 100 mg PO ONCE Patient Comments: TAKE 1 CAPSULE BY MOUTH ONCE DAILY IN THE MORNING trazodone 50 mg tablet 50 mg PO QHS Qty: 90 1RF famotidine 20 mg tablet 20 mg PO BID desvenlafaxine succinate 100 mg tablet extended release 24 hr 100 mg PO DAILY ondansetron 8 mg tablet,disintegrating 8 mg PO BID PRN (Reason: nausea and vomiting) Qty: 60 5RF Referrals Follow up/Referrals: Sav Chandra MD [Primary Care Provider, Family Practice] - See instructions Activity Restrictions/Add. Instructions Additional Instructions/Restrictions: You were evaluated in the emergency department today. As we discussed, you do not have any scratches on your eyes or any foreign bodies. I feel you could have irritation from the dust. Out of an abundance of precaution, were given you an eye ointment to help lubricate your eyes and prevent infection given exposure to foreign body. Please use it 4 times daily for the next 3 to 4 days or until symptoms resolve. Follow-up closely with your primary care provider. Return to the emergency department for new or worsening symptoms. Clinical Impressions Clinical Impression: Corneal irritation of both eyes Stand Alone Forms Stand Alone Forms: Work/School Release Instructions Patient Instructions: DI for Red Eye, DI for Eye Pain Print Language Print Language: Luxembourgish Discharge ED Provider: Elidia White General Adult HPI General Chief complaint: Eye Problems Stated complaint: got dust in eyes Time Seen by Provider: 04/13/25 17:46 Mode of Arrival: Ambulatory Source of Information: Patient Description of Symptoms (Recalled from ER Triage Doc. by RN): Pt reports he was on tractor and had dirt blow into his eyes, he is now having some blur vision, and what he reports feels like sand paper in my eyes. Pt denies eye pain. Pt states he has developed a light headache since. History of Present Illness HPI narrative: This patient is a 59-year-old male who denies significant past medical history presenting to the emergency department for evaluation concern for irritation of both eyes after dirt blew into his eyes. He states that he was on a tractor when dirt flew into his eyes, and now he is having some blurred vision and irritation. This happened just prior to arrival. No other concerns or complaints noted Related Data Home Medications ?Medication ?Instructions ?Recorded ?Confirmed desvenlafaxine succinate 100 mg 100 mg PO DAILY 04/02/25 04/02/25 tablet,extended release 24 hr docusate sodium 100 mg capsule 100 mg PO ONCE 04/02/25 04/02/25 famotidine 20 mg tablet 20 mg PO BID 04/02/25 Previous Rx's ?Medication ?Instructions ?Recorded desvenlafaxine succinate 100 mg 100 mg PO DAILY #90 tabs 01/07/25 tablet,extended release 24 hr (Pristiq) ondansetron 8 mg disintegrating 8 mg PO BID PRN nausea and 01/17/25 tablet vomiting #60 tabs trazodone 50 mg tablet 50 mg PO QHS #90 tabs 02/05/25 Allergies Allergy/AdvReac Type Severity Reaction Status Date / Time Penicillins (PENICILLINS) Allergy Intermediate Verified 04/02/25 15:18 [facility] Disclaimer: The information contained in this section may have been updated after the patient was seen, as this information can be updated by other users. Medical History Strain of right upper arm Right shoulder strain Skin infection Medical clearance for incarceration URI (upper respiratory infection) Pancreatitis Surgical History History of mandibular surgery History of surgery on left wrist Family History Other Cancer Coronary artery disease Diabetes Hypertension Social History Smoking Status: Current every day smoker tobacco type: e-cigarettes alcohol intake: former substance use type: denies use current occupational status: employed Travel in the last 8 weeks?: None Have you lived/traveled outside US in past 30 days?: No Contact w/someone who lives/traveled outside US past 30 days?: No Exposure to someone with infectious disease in past 14 days?: No Do you have a fever (greater than 100.4 F or 38 C)?: No Have you tested positive for COVID-19?: No Exposed to someone with COVID-19 in past 14 days?: No Do you have a sore throat?: No Do you have a cough?: No Do you have any weakness?: No Do you have any diarrhea?: No Are you experiencing any unusual bleeding?: No Do you have any muscle aches/pain?: No Do you have any abdominal pain?: No Are you experiencing loss of taste or smell?: No Other Medical History Have you received the Flu Vaccine for this season: No Have you received the Pneumonia Vaccine: No ROS Obtained: Yes All systems reviewed & no additional complaints except as documented Physical Exam General General appearance: alert and in no apparent distress Head Head exam: atraumatic and normocephalic Eye Eye exam: Present normal appearance, PERRL and EOMI ENT ENT exam: Present normal exam, normal oropharynx, mucous membranes moist and normal external ear exam Neck Neck exam: Present normal inspection, full ROM and trachea midline; Absent tenderness Chest Chest inspection: Present normal inspection and symmetric chest wall rise; Absent tenderness Respiratory Respiratory exam: Present normal lung sounds bilaterally; Absent respiratory distress, wheezes, stridor or accessory muscle use Cardiovascular Cardiovascular exam: Present regular rate and normal rhythm Abdominal Exam Abdominal exam: Present soft; Absent distention, tenderness or guarding Extremities Exam Extremities exam: Present normal inspection, full ROM and normal capillary refill; Absent tenderness or edema Back Exam Back exam: Present normal inspection and full ROM; Absent tenderness Neurological Exam Neurological exam: Present alert, oriented X3, CN II-XII intact and normal gait; Absent motor sensory deficit Psychiatric Psychiatric exam: Present normal affect and normal mood Skin Skin exam: Present warm and dry Medical Decision Making Medical Records Medical records reviewed: Yes I reviewed the patient's medical records. Screening: Per USPSTF and CDC recommendations, given the prevalence of disease in our region, it is our hospital?s policy to screen for HIV and viral Hepatitis for all patients aged 18 and over and those with ongoing risk factors. Osman Inquiry Pt receiving controlled substance: No Vital Signs: 04/13/25 17:44 04/13/25 18:11 Temperature 98.2 F 98.2 F Temperature Source Oral Oral Pulse Rate 69 Pulse Rate [Left] 67 Respiratory Rate 16 16 Blood Pressure 142/86 H Blood Pressure [Right Arm] 160/102 H Blood Pressure Mean [Right Arm] 121 Blood Pressure Source Automatic Cuff Blood Pressure Source [Right Arm] Automatic Cuff Blood Pressure Position Sitting 02 Sat by Pulse Oximetry 98 Oxygen Delivery Method Room Air Room Air Lab Data Lab results reviewed: Yes I reviewed the patient's lab results. Orders (Tests/Meds): ED MEDICATIONS Discontinued Medications Generic Name Dose Route Start Last Admin Trade Name Maurice PRN Reason Stop Dose Admin Fluorescein Sodium 1 mg 04/13/25 18:05 04/13/25 18:08 Fluorescein Sodium 1mg Strip OP 04/13/25 18:06 1 mg ONCE ONE Administration Neomycin/Polymyxin/Bacitracin 3.5 gm 04/13/25 18:05 04/13/25 18:07 Knsrgqad-Fqtci-Rulct Ophth Oint 3.5gm Tube OP 04/13/25 18:06 3.5 gm ONCE ONE Administration Tetracaine HCl 0 ml 04/13/25 18:05 04/13/25 18:07 Tetracaine 0.5% Opth Gregoria 15ml OP 04/13/25 18:06 15 ml ONCE ONE Administration Medical Decision Narrative: In summary, this patient is a 59-year-old male presenting to the Emergency Department for evaluation of bilateral eye irritation. Differential diagnoses considered include but are not limited to corneal abrasion, foreign body, corneal irritation, allergic conjunctivitis. Ruling out the most morbid conditions drove assessment. On exam, the patient is well-appearing. Fluorescein staining was performed of the eyes with no corneal abrasion/ulceration. No significant uptake. He has mild conjunctival injection and irritation. No foreign body noted on lid eversion. Extraocular movements are intact and pupils are equal. I feel that he likely has mild corneal irritation from allergen, but out of an abundance of precaution I gave the patient polymyxin. I feel he is appropriate for discharge with instructions for supportive care. Strict return precautions given Critical Care Critical Care Time Critical Care Time: No
== END 2025-04-13 18:14 | disposition home or self-care (01) ==
PROVIDERS: Emergency Provider Emergency Medicine; PCP Family Medicine
DX: H18.893 Other specified disorders of cornea, bilateral (principal)
CPT/HCPCS: 99283

== ENCOUNTER 2025-06-05 06:39 | Day surgery (SDC) | payer OTHER, SELFPAY ==
--- NOTE | 2025-06-01 10:11 | EXP.HP ---
History of Present Illness *Admission Date: 06/05/25 *History of present illness: Mr. Mcfarland is a 59-year-old gentleman who is here for diagnostic colonoscopy. He reports left lower quadrant abdominal pain, gassiness, bloating, cramps and bowel irregularity. He does have constipation and may go once or twice a week and then he develops diarrhea. He does report incomplete defecation but no excessive wiping. He does have external hemorrhoids but some hemorrhoidal prolapse. Blood will often drip into the commode with his bowel movements and he will see blood on the outside of the bowel movements. His last colonoscopy was more than 10 years ago. He did have a CAT scan in the ED in December 2024. He did have 2 small 5 mm or less pulmonary nodules which were stable since February 2024. There was a low-attenuation focus in the anterior lobe of the liver 9 mm in size and a small left inguinal hernia. There was a portion of the bladder extending into the hernia. The patient is not taking anything for his bowels. His lab work from 03/20 showed hemoglobin 14.2 and borderline anemia with hematocrit 41.7. His indices have formerly been macrocytic. He also had chemistries and his liver chemistries are normal. His lipase in December 2024 was mildly elevated at 408 but more recently on 03 20 was 162. [facility] Disclaimer: The information contained in this section may have been updated after the patient was seen, as this information can be updated by other users. Medical History Strain of right upper arm Right shoulder strain Skin infection Medical clearance for incarceration URI (upper respiratory infection) Pancreatitis Surgical History History of mandibular surgery History of surgery on left wrist Family History Other Cancer Coronary artery disease Diabetes Hypertension Social History (Updated 06/05/25 @ 06:52 by Renetta Prather RN) Smoking Status: Current every day smoker tobacco type: e-cigarettes alcohol intake: never substance use type: denies use current occupational status: employed Travel in the last 8 weeks?: None caffeine: Yes Have you lived/traveled outside US in past 30 days?: No Contact w/someone who lives/traveled outside US past 30 days?: No Exposure to someone with infectious disease in past 14 days?: No Do you have a fever (greater than 100.4 F or 38 C)?: No Have you tested positive for COVID-19?: No Exposed to someone with COVID-19 in past 14 days?: No Do you have a sore throat?: No Do you have a cough?: No Do you have any weakness?: No Are you experiencing any nausea/vomitting?: No Do you have any diarrhea?: No Are you experiencing any unusual bleeding?: No Do you have any muscle aches/pain?: No Do you have any abdominal pain?: No Are you experiencing loss of taste or smell?: No Other Medical History Have you received the Flu Vaccine for this season: No Have you received the Pneumonia Vaccine: No Review of Systems Review of Systems Review of systems (narrative): Negative *Cardiovascular Comments: Negative *Gastrointestinal Comments: Negative *Genitourinary Comments: Negative *Musculoskeletal Comments: Negative *Neurologic Comments: Negative Meds Home Medications and Allergies Home Medications ?Medication ?Instructions ?Recorded ?Confirmed ?Type ondansetron 8 mg disintegrating 8 mg PO BID PRN nausea and 01/17/25 06/05/25 Rx tablet vomiting #60 tabs trazodone 50 mg tablet 50 mg PO QHS #90 tabs 02/05/25 06/05/25 Rx desvenlafaxine succinate 100 mg 100 mg PO DAILY 04/02/25 06/05/25 History tablet,extended release 24 hr (Pristiq) famotidine 20 mg tablet 20 mg PO BID 04/02/25 06/05/25 History sodium,potassium,mag sulfates 17.5 See Rx Instructions PO .COMPLEX 05/22/25 06/05/25 Rx gram-3.13 gram-1.6 gram oral soln #354 mL (Suprep Bowel Prep Kit) New Prescriptions to Start Prescriptions: Allergies Allergy/AdvReac Type Severity Reaction Status Date / Time Penicillins (PENICILLINS) Allergy Intermediate Rash Verified 06/05/25 06:49 Exam *Routine HEENT Exam Head: Present normocephalic Eye: Present EOMI and PERRL ENT: Present mucous membranes moist *Routine Neck Exam Neck: Present supple *Routine Respiratory Exam Respiratory: Present CTA bilaterally *Routine Cardiovascular Exam Cardiovascular: Present RRR *Routine Abdominal Exam Abdominal: Present soft and normoactive bowel sounds; Absent tenderness *Routine Rectal Exam Rectal:: deferred *Routine Genitalia Exam Genitalia:: deferred *Routine Extremities Exam Extremities: Absent cyanosis, clubbing or edema *Routine Skin Exam Skin: Present warm; Absent rash *Routine Neurological Exam Neurological: Present alert and oriented X3 Assessment and Plan *Assessment and plan (1) Left lower quadrant abdominal pain: Status: Acute Category: Medical Code(s): R10.32 - Left lower quadrant pain (2) Abdominal cramps: Status: Acute Category: Medical Code(s): R10.9 - Unspecified abdominal pain (3) Bright red rectal bleeding: Status: Acute Category: Medical Code(s): K62.5 - Hemorrhage of anus and rectum (4) Bloating: Status: Acute Category: Medical Code(s): R14.0 - Abdominal distension (gaseous) (5) Mixed irritable bowel syndrome: Status: Acute Category: Medical Code(s): K58.2 - Mixed irritable bowel syndrome (6) Abdominal pain: Status: Acute Category: Medical Code(s): R10.9 - Unspecified abdominal pain Plan A/P: 1. Left lower quadrant abdominal pain with cramps and bright red rectal bleeding is the preprocedural diagnosis. The patient also has bloating and history of mixed IBS. The patient will be anesthetized/sedated using MAC sedation. The patient has been seen and examined. Cardiac and lung assessment prior to the examination is stable. Proceed with planned diagnostic colonoscopy.
[2025-06-04 08:03] VITALS: BMI 30.9
[2025-06-05 06:48] VITALS: BP 121/87; PULSE 82; RESP 18; TEMP 36.1; O2SAT 96
[2025-06-05] MEDS: LACTATED RINGERS 1000ML 1,000 ML 50 ML IV (06:59)
--- NOTE | 2025-06-05 07:00 | HMH.PROCNOTE ---
[facility] Procedure Note Date: 06/05/25 Time: 08:12 Procedure Note:: Colonoscopy Procedure Report: Colonoscopy with cold snare polypectomy and hemorrhoid band ligation Endoscopist: Maykel Ness II, MD Referring physician: Akin Chandra MD Date of Procedure: June 05, 2025 Equipment: Olympus [id number] adult colonoscope Sedation: MAC sedation Indication: Mr. Mcfarland is a 59-year-old gentleman who is here for diagnostic colonoscopy. He reports left lower quadrant abdominal pain, gassiness, bloating, cramps and bowel irregularity. He does have constipation and may go once or twice a week and then he develops diarrhea. He does report incomplete defecation but no excessive wiping. He does have external hemorrhoids but some hemorrhoidal prolapse. Blood will often drip into the commode with his bowel movements and he will see blood on the outside of the bowel movements. His last colonoscopy was more than 10 years ago. He did have a CAT scan in the ED in December 2024. He did have 2 small 5 mm or less pulmonary nodules which were stable since February 2024. There was a low-attenuation focus in the anterior lobe of the liver 9 mm in size and a small left inguinal hernia. There was a portion of the bladder extending into the hernia. The patient is not taking anything for his bowels. His lab work from 03/20 showed hemoglobin 14.2 and borderline anemia with hematocrit 41.7. His indices have formerly been macrocytic. He also had chemistries and his liver chemistries are normal. His lipase in December 2024 was mildly elevated at 408 but more recently on 03/20/2025 was 162. Procedure: Prior to the procedure, a history and physical exam was performed, and patient's medications and allergies were reviewed. The risks, benefits and alternatives of the sedation and procedure were discussed with the patient. All questions were answered and informed consent was obtained. The patient was brought to the procedure room. Patient identification and proposed procedure were verified by the physician and the nurse. The patient was placed in a left lateral decubitus position and the scope was passed under direct vision. Throughout the procedure, the patient's blood pressure, pulse, and oxygen saturations were monitored continuously. The colonoscopy was accomplished without difficulty. The patient tolerated the procedure well. Findings: On digital rectal examination there was normal rectal tone. There were no external hemorrhoids. The colonoscope was introduced through the anal canal to the rectum and advanced to the cecum. The ileocecal valve and appendiceal orifice were identified. The scope was advanced a short distance into the ileum which appeared grossly normal. The scope was then withdrawn into the colon. There were 4 colon polyps (ascending x 1 (3 mm), descending x 1 (5 mm) and rectosigmoid x 2 (4 and 5 mm)). These were all removed via cold snare polypectomy. The remaining cecum, ascending, transverse, descending, sigmoid and rectum were grossly normal. There were no mucosal abnormalities identified. Upon retroflexion within the rectum there were grade 2 internal hemorrhoids. 3 columns of hemorrhoids were banded using 3 bands with excellent ligation effect. The preparation was excellent throughout with Barnard Preparation Score of 9. The cecal time was 14 minutes. Impression: 1. Diminutive colonic polyps x 4 2. Grade 2 internal hemorrhoids status post band ligation x 3 Plan: I do feel that the patient has obstipation related abdominal discomfort with increased fecal burden and excessive colonic fermentation. The patient should benefit from the dietary measures and fiber bowel regimen. We will discuss additional treatment options. Additionally, I would recommend repeat liver protocol CAT scan in September 2025.
--- NOTE | 2025-06-05 07:13 | EXP.ANES.CKL ---
[facility] Disclaimer: The information contained in this section may have been updated after the patient was seen, as this information can be updated by other users. Medical History Strain of right upper arm Right shoulder strain Skin infection Medical clearance for incarceration URI (upper respiratory infection) Pancreatitis Surgical History History of mandibular surgery History of surgery on left wrist Family History Other Cancer Coronary artery disease Diabetes Hypertension Social History (Updated 06/05/25 @ 06:52 by Renetta Prather RN) Smoking Status: Current every day smoker tobacco type: e-cigarettes alcohol intake: never substance use type: denies use current occupational status: employed Travel in the last 8 weeks?: None caffeine: Yes Have you lived/traveled outside [place] in past 30 days?: No Contact w/someone who lives/traveled outside US past 30 days?: No Exposure to someone with infectious disease in past 14 days?: No Do you have a fever (greater than 100.4 F or 38 C)?: No Have you tested positive for COVID-19?: No Exposed to someone with COVID-19 in past 14 days?: No Do you have a sore throat?: No Do you have a cough?: No Do you have any weakness?: No Are you experiencing any nausea/vomitting?: No Do you have any diarrhea?: No Are you experiencing any unusual bleeding?: No Do you have any muscle aches/pain?: No Do you have any abdominal pain?: No Are you experiencing loss of taste or smell?: No [facility] Anesthesia Checklist Patient Identification Patient Identification: Verbal (Name & ) Structural Data Admitted From: Home Planned Operative Procedure/s: colonoscopy Consent for Planned Operative Procedure(s) Verified: Yes NPO Status Verified Time NPO: 00:00 Airway Assessment Mallampati Score:: Class II C-Spine Mobility Assessed: Yes TMJ Mobility Assessed: Yes Dentition: Good Dentition Neurological Assessment Level of Consciousness: Awake, Alert and Appropriate Anesthesia Plan Anesthesia Risk discussed: Yes Anesthesia Plan: Verified ASA Class: II Anesthesia Type: MAC
[2025-06-05 08:19] VITALS: BP 85/62; PULSE 62; RESP 16; TEMP 36.2; O2SAT 93
[2025-06-05 08:29] VITALS: BP 99/64; PULSE 60; RESP 16; O2SAT 93
[2025-06-05 08:39] VITALS: BP 116/70; PULSE 61; RESP 18; O2SAT 98
[2025-06-05 08:49] VITALS: BP 122/73; PULSE 61; RESP 18; O2SAT 99
[2025-06-05 09:08] VITALS: BP 116/69; PULSE 62; RESP 18; TEMP 36.2; O2SAT 99
== END 2025-06-05 09:08 | disposition home or self-care (01) ==
PROVIDERS: PCP Family Medicine; Visit Provider Internal Medicine Gastroenterology
PROC: 0DJD8ZZ Inspection of Lower Intestinal Tract, Via Natural or Artificial Opening Endoscopic (ICD-10-PCS; CPT 45378; principal; 2025-06-05 08:00)
DX: D12.2 Benign neoplasm of ascending colon (principal); D12.4 Benign neoplasm of descending colon; D12.7 Benign neoplasm of rectosigmoid junction; K62.5 Hemorrhage of anus and rectum; K58.2 Mixed irritable bowel syndrome; K59.00 Constipation, unspecified; K64.1 Second degree hemorrhoids; K40.90 Unilateral inguinal hernia, without obstruction or gangrene, not specified as recurrent; F17.290 Nicotine dependence, other tobacco product, uncomplicated; R91.8 Other nonspecific abnormal finding of lung field; R93.2 Abnormal findings on diagnostic imaging of liver and biliary tract; Z88.0 Allergy status to penicillin
CPT/HCPCS: 45385; 45398; C1889; J2003; J2704; J7120